=== PATIENT | male | born 1940 | race Caucasian/White ===

== ENCOUNTER 2019-10-11 16:43 | Inpatient (IN) | payer MEDICARE, OTHER ==
[~2019-10-11] VITALS: Ht 172.7 cm; Wt 105.9 kg
[2019-10-11 17:18] LABS: BASOPHILS % (AUTO) 0.4 % (0.0-5.0); EOSINOPHILS % (AUTO) 2.9 % (0.0-8.0); HEMATOCRIT 33.3 % (42-54); LYMPHOCYTES % (AUTO) 12.9 % (21.0-51.0); MEAN CORPUSCULAR HEMOGLOBIN 29.2 pg (27.0-33.0); MEAN CORPUSCULAR HGB CONC 31.8 g/dL (32.0-36.0); MEAN CORPUSCULAR VOLUME 91.7 fL (79-99); MONOCYTES % (AUTO) 7.4 % (3.0-13.0); PLATELET COUNT (AUTO) 151 K/uL (130-400); RED BLOOD CELL COUNT(AUTO) 3.63 MIL/uL (4.50-6.20); RED CELL DISTRIBUTION WIDTH 14.4 % (11.0-15.5); WHITE BLOOD COUNT (AUTO) 8.4 K/uL (4.8-10.8)
[2019-10-11 17:28] LABS: INR 1.17 (0.85-1.15); PARTIAL THROMBOPLASTIN TIME 28.9 SEC (26.3-35.5); PROTHROMBIN TIME 12.2 SEC (9.6-11.6)
[2019-10-11 17:32] LABS: ALBUMIN 3.1 g/dL (3.5-5.0); BILIRUBIN,TOTAL 0.7 mg/dL (0.2-1.0); CREATININE 1.1 mg/dL (0.5-1.5); POTASSIUM 4.1 mmol/L (3.5-5.1); TOTAL PROTEIN, SERUM 6.7 g/dL (6.0-8.3)
[2019-10-11 17:52] LABS: APPEARANCE,URINE Clear (CLEAR); BILIRUBIN,URINE Negative (NEGATIVE); COLOR,URINE Yellow (YELLOW); GLUCOSE, URINE (UA) Negative (NEGATIVE); KETONES,URINE Negative (NEGATIVE); LEUKOCYTE ESTERASE ,URINE Negative (NEGATIVE); NITRATE,URINE Negative (NEGATIVE); OCCULT BLOOD,URINE Negative (NEGATIVE); PROTEIN,URINE Negative (NEGATIVE); UROBILINOGEN,URINE 0.2 mg/dL (0.2-1.0)
[2019-10-11] MEDS ORDERED: DILTIAZEM HCL 5 MG/ML 10 ML VIAL IV ONE (18:31)
[2019-10-11 18:32] LABS: B-TYPE NATRIURETIC PEPTIDE 222 pg/mL (0-100)
[2019-10-11] MEDS ORDERED: DILTIAZEM HCL 125 MG/25 ML VIAL IV ONE (18:32)
[2019-10-11] MEDS ORDERED: SODIUM CHLORIDE 0.9% 100 ML IV ONE (18:32)
[2019-10-11] MEDS ORDERED: SODIUM CHLORIDE 0.9% 500ML 500 ML IV ONE (18:56)
[2019-10-11] MEDS ORDERED: ACETAMINOPHEN 325 MG TAB PO PRN ×2 (20:30)
[2019-10-11] MEDS ORDERED: MORPHINE SULFATE 2 MG/ML 1ML SYG IV PRN (20:30)
[2019-10-11] MEDS ORDERED: LACTULOSE 20 GM/30 ML UDCUP PO PRN (20:30)
[2019-10-11] MEDS ORDERED: DILTIAZEM HCL 125 MG/25 ML 125 MG in SODIUM CHLORIDE 0.9% 100 ML IV PRN (20:30)
[2019-10-11] MEDS ORDERED: GUAIFENESIN-DM 200/20 MG 10 ML PO PRN (20:30)
[2019-10-11] MEDS ORDERED: ONDANSETRON HCL 4 MG/2 ML VIAL IV PRN (20:30)
[2019-10-11] MEDS ORDERED: SODIUM CHLORIDE 0.9% 1000ML 1,000 ML IV SCH (20:30)
[2019-10-11] MEDS ORDERED: BENZOCAINE/MENTH/CETYLPYRD CL 1 EACH LOZENGE MM PRN (20:30)
[2019-10-11] MEDS ORDERED: NITROGLYCERIN 0.4 MG SL TAB SL PRN (20:30)
[2019-10-11] MEDS ORDERED: DILTIAZEM HCL 5 MG/ML 5 ML VIAL IVP PRN (20:30)
[2019-10-11] MEDS ORDERED: POTASSIUM CHLORIDE 20MEQ/100ML 100 ML IV PRN (20:45)
[2019-10-11] MEDS ORDERED: GLUCAGON 1MG KIT 1 MG ML IM PRN (20:45)
[2019-10-11] MEDS ORDERED: LIDOCAINE HCL-MPF 1% 2ML VIAL IV PRN (20:45)
[2019-10-11] MEDS ORDERED: MAGNESIUM 2GM PREMIX 50ML 50 ML IV PRN (20:45)
[2019-10-11] MEDS ORDERED: DEXTROSE 50%-WATER 50 ML DISP.SYRIN IV PRN (20:45)
[2019-10-11] MEDS: FAMOTIDINE/PF 20 MG/2 ML VIAL IV SCH (22:57)
[2019-10-11] MEDS: HEPARIN SODIUM 5000UNIT/ML 1ML VIAL SQ SCH (23:04)
[2019-10-11] MEDS: IPRATROPIUM/ALBUTEROL SULFATE 3 ML SOLUTION IH PRN (23:43)
[2019-10-12] VITALS (7 sets, daily range): BP systolic 107–149; BP diastolic 50–78
[2019-10-12] MEDS ORDERED: INSU100V12 SQ (03:37)
[2019-10-12] MEDS ORDERED: CETI10CA5 PO (03:37)
[2019-10-12] MEDS ORDERED: HYDR-4377 PO (03:37)
[2019-10-12] MEDS ORDERED: ALPR0.5T8 PO (03:37)
[2019-10-12] MEDS ORDERED: FLUTIC IH (03:37)
[2019-10-12] MEDS ORDERED: ZOLP5TAB8 PO (03:37)
[2019-10-12] MEDS ORDERED: CELE200C PO (03:37)
[2019-10-12] MEDS ORDERED: ALBU90AE2 IH (03:37)
[2019-10-12] MEDS ORDERED: VALS320T2 PO (03:37)
[2019-10-12] MEDS ORDERED: LOSA1TAB54 PO (03:37)
[2019-10-12] MEDS ORDERED: TAMS-1 PO (03:37)
[2019-10-12] MEDS ORDERED: ROSU20TA23 PO (03:37)
[2019-10-12] MEDS ORDERED: GLYB5TAB8 PO (03:37)
[2019-10-12] MEDS ORDERED: OMEP10SU2 PO (03:37)
[2019-10-12] MEDS ORDERED: MONT10TA26 PO (03:37)
[2019-10-12] MEDS ORDERED: BENZ-51 PO (03:37)
[2019-10-12] MEDS ORDERED: DULARA IH (03:37)
[2019-10-12 05:43] LABS: BASOPHILS % (AUTO) 0.3 % (0.0-5.0); EOSINOPHILS % (AUTO) 2.9 % (0.0-8.0); HEMATOCRIT 33.3 % (42-54); LYMPHOCYTES % (AUTO) 13.9 % (21.0-51.0); MEAN CORPUSCULAR HEMOGLOBIN 28.8 pg (27.0-33.0); MEAN CORPUSCULAR HGB CONC 31.2 g/dL (32.0-36.0); MEAN CORPUSCULAR VOLUME 92.2 fL (79-99); MONOCYTES % (AUTO) 7.7 % (3.0-13.0); NEUTROPHILS % (AUTO) 74.7 % (40.0-77.0); PLATELET COUNT (AUTO) 175 K/uL (130-400); RED BLOOD CELL COUNT(AUTO) 3.61 MIL/uL (4.50-6.20); RED CELL DISTRIBUTION WIDTH 14.7 % (11.0-15.5); WHITE BLOOD COUNT (AUTO) 8.8 K/uL (4.8-10.8)
[2019-10-12 05:48] LABS: HEMOGLOBIN A1C 8.1 % (4.0-6.0)
[2019-10-12 06:04] LABS: ALBUMIN 3.1 g/dL (3.5-5.0); BILIRUBIN,TOTAL 0.6 mg/dL (0.2-1.0); CREATININE 1.4 mg/dL (0.5-1.5); MAGNESIUM 1.9 mg/dL (1.80-2.40); POTASSIUM 4.3 mmol/L (3.5-5.1); TOTAL PROTEIN, SERUM 6.6 g/dL (6.0-8.3)
[2019-10-12] MEDS: IPRATROPIUM/ALBUTEROL SULFATE 3 ML SOLUTION IH PRN ×4 (06:56→21:34)
[2019-10-12] MEDS: ASPIRIN 81MG TAB.CHEW PO SCH (08:07)
--- NOTE | 2019-10-12 09:30 | NUR ---
DYSPHAGIA EVAL COMPLETED. +S/S OF ASPIRATION WITH THIN LIQUIDS VIA SUP SIP AND STRAW SIP. RECOMMEND REGULAR TEXTURE, THIN LIQUIDS; PILLS WHOLE WITH LIQUIDS. NGHIA CASTREJONCK, SMALL BITES AND SIPS. Addendum: 10/12/19 at 1252 by KAITLYNN WEISS, [facility] Amended: Links added.
[2019-10-12] MEDS: FAMOTIDINE/PF 20 MG/2 ML VIAL IV SCH ×2 (09:47→23:00)
[2019-10-12] MEDS: HEPARIN SODIUM 5000UNIT/ML 1ML VIAL SQ SCH ×2 (09:51→23:00)
[2019-10-12] MEDS ORDERED: FUROSEMIDE 10 MG/ML 2ML VIAL IV SCH (10:45)
--- NOTE | 2019-10-12 11:59 | NUR ---
DR. OLIVER IN ROOM WITH PT. FOR CONSULT.
--- NOTE | 2019-10-12 13:03 | NUR ---
Toan SHARIF PA-C, IN ROOM WITH PT. FOR CONSULT.
--- NOTE | 2019-10-12 13:47 | NUR ---
INITIAL Patient lives with spouse, Katerina Hanley, . No home services. DME: BPM, CPAP, cane, walker with seat. Patient needs help with ADL's independenly but does not drive. PCP is Dr. Kem Washburn. Pharmacy is [facility] located on [address] [place] [address]. DCP is home. Addendum: 10/12/19 at 1349 by ARYAN GARCÍA SS Amended: Links added.
[2019-10-12 14:02] LABS: ABG BASE EXCESS 2.2 mmol/L (-2.0-3.0); ABG HCO3 26.7 mmol/L (21.0-28.0); ABG PCO2 41 mmHg (35-48)
--- NOTE | 2019-10-12 17:51 | NUR ---
TO VQ SCAN VIA W/C ACCOMPANIED BY GREETING CARD WRITER. O2 AT 3L/NC IN PLACE. PLEASANT, TALKATIVE; DENIES ANY C/O SOB.
[2019-10-12] MEDS ORDERED: ZOLPIDEM TARTRATE 5 MG TAB ONE (22:56)
[2019-10-12] MEDS: METOPROLOL TARTRATE 25 MG TAB PO SCH (23:00)
[2019-10-12] MEDS ORDERED: ZOLPIDEM TARTRATE 5 MG TAB PO ONE (23:15)
[2019-10-13 00:07] VITALS: BP 133/69
[2019-10-13 04:09] VITALS: BP 122/83
--- NOTE | 2019-10-13 05:01 | NUR ---
PT HAS HAD EPISODES OF MINIMAL CONFUSION. EASILY REORIENTED. HAVING SOB. AFIB 120-AND DOWN TO 80S. ON CARDIZEM DRIP. 5MG/HR.
[2019-10-13 05:39] LABS: BASOPHILS % (AUTO) 0.2 % (0.0-5.0); EOSINOPHILS % (AUTO) 1.2 % (0.0-8.0); HEMATOCRIT 33.9 % (42-54); LYMPHOCYTES % (AUTO) 8.6 % (21.0-51.0); MEAN CORPUSCULAR HEMOGLOBIN 28.8 pg (27.0-33.0); MEAN CORPUSCULAR HGB CONC 31.3 g/dL (32.0-36.0); MEAN CORPUSCULAR VOLUME 92.1 fL (79-99); MONOCYTES % (AUTO) 7.2 % (3.0-13.0); NEUTROPHILS % (AUTO) 82.4 % (40.0-77.0); PLATELET COUNT (AUTO) 181 K/uL (130-400); RED BLOOD CELL COUNT(AUTO) 3.68 MIL/uL (4.50-6.20); RED CELL DISTRIBUTION WIDTH 14.7 % (11.0-15.5); WHITE BLOOD COUNT (AUTO) 12.2 K/uL (4.8-10.8)
[2019-10-13 05:53] LABS: B-TYPE NATRIURETIC PEPTIDE 241 pg/mL (0-100)
[2019-10-13 06:04] LABS: ALBUMIN 3.4 g/dL (3.5-5.0); CREATININE 1.4 mg/dL (0.5-1.5); MAGNESIUM 2.3 mg/dL (1.80-2.40); PHOSPHORUS 3.7 mg/dL (2.5-4.9); POTASSIUM 4.4 mmol/L (3.5-5.1); TROPONIN I 0.15 ng/mL (0.00-0.06)
[2019-10-13] MEDS: IPRATROPIUM/ALBUTEROL SULFATE 3 ML SOLUTION IH PRN (06:58)
[2019-10-13] MEDS: METOPROLOL TARTRATE 25 MG TAB PO SCH ×3 (07:35→21:00)
[2019-10-13] MEDS: ASPIRIN 81MG TAB.CHEW PO SCH (07:35)
[2019-10-13] MEDS: HEPARIN SODIUM 5000UNIT/ML 1ML VIAL SQ SCH (07:35)
[2019-10-13] MEDS: FAMOTIDINE/PF 20 MG/2 ML VIAL IV SCH ×2 (07:35→20:37)
[2019-10-13 07:53] VITALS: BP 118/71
--- NOTE | 2019-10-13 08:00 | NUR ---
ASSESSMENT PT IS AAOX3 RESTING IN BED, DENIES CP DENIES SOB AT THIS TIME WHILE AT REST. RESTING IN BED, CALL LIGHT WITHIN REACH.
--- NOTE | 2019-10-13 08:00 | NUR ---
MEDICATION ADMINISTRATION / NO SCANNER VERIFIED PATIENTS FULL NAME, , ROOM NUMBER, ALLERGIES, AND ALL MEDS ADMINISTERED WITH PATIENT AND [employer] Games[employer]CH EMAR, ADMINISTER BUTTON USED TO CHART MEDS. NO SCANNER IS AVAILABLE ON MY COMPUTER AND NO OTHER COMPUTER WITH SCANNER IS AVAILABLE FOR ME TO USE, SEARCED ALL FLOORS. IT STAFF OMAYRA CALLED AT 8 AM TO REPORT THIS. OMAYRA STATES THEY WILL WORK ON FINDING ME A VIABLE SCANNER/COMPUTER "SOON".
--- NOTE | 2019-10-13 08:00 | NUR ---
MEDICATION ADMINISTRATION / NO SCANNER VERIFIED PATIENTS FULL NAME, , ROOM NUMBER, ALLERGIES, AND ALL MEDS ADMINISTERED WITH PATIENT AND [employer] HealthCare[employer]CH EMAR, ADMINISTER BUTTON USED TO CHART MEDS. NO SCANNER IS AVAILABLE ON MY COMPUTER AND NO OTHER COMPUTER WITH SCANNER IS AVAILABLE FOR ME TO USE, SEARCED ALL FLOORS. IT STAFF OMAYRA CALLED AT 8 AM TO REPORT THIS. OMAYRA STATES THEY WILL WORK ON FINDING ME A VIABLE SCANNER/COMPUTER "SOON".
--- NOTE | 2019-10-13 08:43 | NUR ---
HOLD Pt CURRENTLY NPO PENDING PROCEDURE. PRESSURE SUPERVISOR WILL CONTINUE TO FOLLOW Pt AT THIS TIME. Addendum: 10/13/19 at 0845 by KAITLYNN WEISS [facility] Amended: Links added.
[2019-10-13 11:48] VITALS: BP 117/62
--- NOTE | 2019-10-13 12:11 | NUR ---
SWALLOW TREATMENT COMPLETED. S: Pt SEATED AT 90 DEGREES IN CHAIR. Pt COOPERATIVE DURING THE SESSION. O: Pt CURRENTLY TARGETING SWALLOWING GOALS: 1. Pt WILL COMPLETE CHIN TUCK FOR ALL MEALS AND SNACKS: 100% ACCURACY. 2. Pt WILL TOLERATE REGULAR, THIN LIQUID DIET WITH NO S/S OF ASPIRATION USING COMPENSATORY STRATEGIES: NO S/S OF ASPIRATION PRESENT WITH PUREED, PUDDING, MIXED AND THIN LIQUID TRIALS X7 EACH. A: Pt VERBALIZED UNDERSTANDING AND KNOWLEDGE ON USE OF CHIN TUCK. Pt STATES THAT HE USES THE CHIN TUCK MANEUVER FOR ALL MEALS AND SNACKS. NO OVERT S/S OF ASPIRATION PRESENT AT THE TIME OF THE SESSION. P: RECOMMEND CONTINUED DIET WITH SAFE SWALLOW PRECAUTIONS. ANIMAL KEEPER HEAD WILL CONTINUE TO FOLLOW Pt. ALL QUESTIONS ANSWERED AT THIS TIME. Addendum: 10/13/19 at 1223 by KAITLYNN WEISS, [facility] Amended: Links added.
[2019-10-13 15:25] VITALS: BP 149/81
[2019-10-13] MEDS: GLYBURIDE 5 MG TABLET PO SCH (17:00)
[2019-10-13] MEDS: INSULIN LISPRO 100 UNIT/ML 3ML SQ SCH (17:00)
[2019-10-13 20:19] VITALS: BP 153/79
[2019-10-13] MEDS: ALPRAZOLAM 0.5 MG TABLET PO SCH (20:37)
[2019-10-13] MEDS: TAMSULOSIN HCL 0.4 MG CAP.ER.24H PO SCH (20:37)
[2019-10-13] MEDS: ATORVASTATIN CALCIUM 40 MG TABLET PO SCH (20:37)
[2019-10-13] MEDS: ZOLPIDEM TARTRATE 5 MG TAB PO SCH (20:38)
[2019-10-13] MEDS ORDERED: FUROSEMIDE 10 MG/ML 2ML VIAL IV SCH (21:00)
[2019-10-13] MEDS ORDERED: METOPROLOL TARTRATE 25 MG TAB PO SCH (21:00)
[2019-10-13] MEDS: ENOXAPARIN SODIUM 120 MG/0.8ML SQ SCH (22:24)
[2019-10-13] MEDS: INSULIN GLARGINE 100 UNITS/ML 10 ML VIAL SQ SCH (22:41)
--- NOTE | 2019-10-14 | NUR ---
PT, AGAIN WAS CONFUSED AT THIS TIME. GOT OUT OF BED AND PULLED OFF HIS IV, HIS GOWN, AND URINATED ON THE FLOOR. HE STATED HE WAS SO SLEEPY HE DID NOT THINK ABOUT CALLING FOR HELP, AND UNTIL I CAME IN TO CHECK ON HIM HE REALIZED WHAT HE HAD DONE. CALLED HIS , AND REQUESTED THAT SHE COME IN PER PT REQUEST. NEW IV STARTED, PT CLEANED UP, AND CONTINUES ON CARDIZEM DRIP. HR DID INCREASE TO 120'S AT THIS TIME. PLACED BACK ON NASAL CANNULA.
[2019-10-14 00:46] VITALS: BP 146/76
[2019-10-14 04:03] VITALS: BP 97/50
[2019-10-14 05:08] LABS: BASOPHILS % (AUTO) 0.3 % (0.0-5.0); EOSINOPHILS % (AUTO) 2.2 % (0.0-8.0); HEMATOCRIT 32.5 % (42-54); LYMPHOCYTES % (AUTO) 11.8 % (21.0-51.0); MEAN CORPUSCULAR HGB CONC 31.7 g/dL (32.0-36.0); MEAN CORPUSCULAR VOLUME 91.5 fL (79-99); MONOCYTES % (AUTO) 8.9 % (3.0-13.0); NEUTROPHILS % (AUTO) 76.5 % (40.0-77.0); PLATELET COUNT (AUTO) 170 K/uL (130-400); RED BLOOD CELL COUNT(AUTO) 3.55 MIL/uL (4.50-6.20); RED CELL DISTRIBUTION WIDTH 14.7 % (11.0-15.5); WHITE BLOOD COUNT (AUTO) 9.8 K/uL (4.8-10.8)
[2019-10-14 05:21] LABS: CREATININE 1.4 mg/dL (0.5-1.5); MAGNESIUM 1.8 mg/dL (1.80-2.40); PHOSPHORUS 3.1 mg/dL (2.5-4.9)
[2019-10-14 05:53] LABS: B-TYPE NATRIURETIC PEPTIDE 315 pg/mL (0-100)
[2019-10-14] MEDS: IPRATROPIUM/ALBUTEROL SULFATE 3 ML SOLUTION IH PRN ×2 (06:43→17:11)
[2019-10-14] MEDS: INSULIN LISPRO 100 UNIT/ML 3ML SQ SCH ×3 (07:04→16:34)
[2019-10-14 08:16] VITALS: BP 105/59
[2019-10-14] MEDS ORDERED: FUROSEMIDE 10 MG/ML 4ML VIAL IV SCH ×2 (09:00→14:00)
[2019-10-14] MEDS: CETIRIZINE HCL 5 MG TABLET PO SCH (10:59)
[2019-10-14] MEDS: ALPRAZOLAM 0.5 MG TABLET PO SCH ×3 (10:59→21:48)
[2019-10-14] MEDS: GLYBURIDE 5 MG TABLET PO SCH ×2 (10:59→16:34)
[2019-10-14] MEDS: METOPROLOL TARTRATE 25 MG TAB PO SCH ×3 (11:00→21:48)
[2019-10-14] MEDS: MONTELUKAST SODIUM 10 MG TAB PO SCH (11:00)
[2019-10-14] MEDS: FAMOTIDINE/PF 20 MG/2 ML VIAL IV SCH ×2 (11:00→21:48)
[2019-10-14] MEDS: ASPIRIN 81MG TAB.CHEW PO SCH (11:00)
[2019-10-14] MEDS: ENOXAPARIN SODIUM 120 MG/0.8ML SQ SCH ×2 (11:01→21:49)
[2019-10-14 12:10] VITALS: BP 105/52
--- NOTE | 2019-10-14 13:10 | NUR ---
PATIENT TAKEN OFF CARDIZEM DRIP.
--- NOTE | 2019-10-14 14:22 | NUR ---
TELE UPDATE: 80
[2019-10-14 16:33] VITALS: BP 132/66
[2019-10-14] MEDS: BUDESONIDE 0.5 MG/2 ML INH IH SCH (17:11)
--- NOTE | 2019-10-14 19:00 | NUR ---
PATIENT COMPLETED 1ST PART OF HERBERT SCAN HE WILL HAVE TO BE NPO AFTER MIDNIGHT. ENDORSED THIS TO PM NURSE. PATIENT IS ALSO PENDING TO BRING HIS OWN CPAP. IN THE MEAN TIME, MAY USE HOSPITAL'S EQUIPMENT.
[2019-10-14 20:17] VITALS: BP 124/60
[2019-10-14] MEDS: INSULIN GLARGINE 100 UNITS/ML 10 ML VIAL SQ SCH (21:00)
[2019-10-14] MEDS: ZOLPIDEM TARTRATE 5 MG TAB PO SCH (21:48)
[2019-10-14] MEDS: ATORVASTATIN CALCIUM 40 MG TABLET PO SCH (21:48)
[2019-10-14] MEDS: TAMSULOSIN HCL 0.4 MG CAP.ER.24H PO SCH (21:48)
[2019-10-15 00:01] VITALS: BP 111/55
--- NOTE | 2019-10-15 03:00 | NUR ---
PT PULLED IV OUT, NEW IV INSERTED.
[2019-10-15 04:18] VITALS: BP 128/73
--- NOTE | 2019-10-15 06:20 | NUR ---
REFUSING DAILY WEIGHT ON PT. STATING SHE WANTS HIM TO SLEEP.
[2019-10-15] MEDS: INSULIN LISPRO 100 UNIT/ML 3ML SQ SCH ×3 (06:23→18:00)
[2019-10-15] MEDS: IPRATROPIUM/ALBUTEROL SULFATE 3 ML SOLUTION IH PRN ×2 (07:18→19:10)
[2019-10-15] MEDS: BUDESONIDE 0.5 MG/2 ML INH IH SCH ×2 (07:18→19:25)
[2019-10-15 07:27] LABS: HEMATOCRIT 30.7 % (42-54); MEAN CORPUSCULAR HEMOGLOBIN 29.3 pg (27.0-33.0); MEAN CORPUSCULAR HGB CONC 31.9 g/dL (32.0-36.0); MEAN CORPUSCULAR VOLUME 91.6 fL (79-99); PLATELET COUNT (AUTO) 162 K/uL (130-400); RED BLOOD CELL COUNT(AUTO) 3.35 MIL/uL (4.50-6.20); RED CELL DISTRIBUTION WIDTH 14.2 % (11.0-15.5); WHITE BLOOD COUNT (AUTO) 7.7 K/uL (4.8-10.8)
[2019-10-15 07:36] LABS: CREATININE 1.4 mg/dL (0.5-1.5); POTASSIUM 3.5 mmol/L (3.5-5.1)
[2019-10-15 07:40] LABS: INR 1.22 (0.85-1.15); PROTHROMBIN TIME 12.7 SEC (9.6-11.6)
--- NOTE | 2019-10-15 07:40 | NUR ---
ASSESSMENT ENCOUNTERED PT A&OX3, CALM COOPERATIVE AND DOES NOT APPEAR TO BE IN ANY DISTRESS NOR ANY NEURO DEFICITS PRESENT. PT DENIES PAIN, SOB, NAUSEA BUT DOES C/O INTERMITTENT COUGH, DYSPNEA ON EXERTION AND GENERAL BODY WEAKNESS. PT IS NPO PENDING LEXISCAN. CALL LIGHT WITHIN REACH, FAMILY AT BEDSIDE.
[2019-10-15 07:49] VITALS: BP 111/46
[2019-10-15] MEDS: FAMOTIDINE/PF 20 MG/2 ML VIAL IV SCH ×2 (07:50→20:42)
[2019-10-15] MEDS: ENOXAPARIN SODIUM 120 MG/0.8ML SQ SCH ×2 (07:50→20:42)
[2019-10-15] MEDS: METOPROLOL TARTRATE 25 MG TAB PO SCH ×3 (07:50→20:42)
[2019-10-15 08:03] LABS: EOSINOPHILS % (MANUAL) 5 % (1-6); LYMPHOCYTES % (MANUAL) 20 % (22-44); MAN.DIFF COMMENT-IMPRESSION MANUAL DIFFERENTIAL; MONOCYTES % (MANUAL) 5 % (2-9); SEGMENTED NEUTROPHILS % 70 % (40-70)
[2019-10-15 08:04] LABS: PLATELET MORPHOLOGY COMMENT ADEQUATE
[2019-10-15] MEDS: ALPRAZOLAM 0.5 MG TABLET PO SCH ×3 (09:00→21:00)
[2019-10-15] MEDS ORDERED: REGADENOSON 0.4 MG/5 ML PF SYG IVP SCH (10:45)
--- NOTE | 2019-10-15 13:31 | NUR ---
FOLLOW UP Pt COMPLETING SAFE SWALLOW PRECAUTIONS OF NGHIA PAEZ, NO STRAW, SMALL BITES AND SIPS INDEPENDENTLY FOR ALL MEALS AND SNACKS. DISCHARGE FROM SKILLED SPEECH THERAPY IS RECOMMENDED AT THIS TIME. Addendum: 10/15/19 at 1332 by KAITLYNN WEISS, [facility] Amended: Links added.
[2019-10-15] MEDS ORDERED: AZITHROMYCIN 500MG+NS 250ML 250 ML IV SCH (14:45)
[2019-10-15 15:40] VITALS: BP 142/57
[2019-10-15] MEDS: GLYBURIDE 5 MG TABLET PO SCH ×2 (15:58→17:58)
[2019-10-15] MEDS: AZITHROMYCIN 250 MG TABLET PO SCH (15:58)
[2019-10-15] MEDS: CETIRIZINE HCL 5 MG TABLET PO SCH (15:59)
[2019-10-15] MEDS: MONTELUKAST SODIUM 10 MG TAB PO SCH (15:59)
[2019-10-15] MEDS: FUROSEMIDE 40 MG TABLET PO SCH (15:59)
[2019-10-15] MEDS: ASPIRIN 81MG TAB.CHEW PO SCH (15:59)
[2019-10-15] MEDS: CEFTRIAXONE SODIUM 1 GM IVP SCH (16:02)
[2019-10-15 19:12] VITALS: BP 131/63
[2019-10-15] MEDS: TAMSULOSIN HCL 0.4 MG CAP.ER.24H PO SCH (20:42)
[2019-10-15] MEDS: ATORVASTATIN CALCIUM 40 MG TABLET PO SCH (20:42)
[2019-10-15] MEDS: ZOLPIDEM TARTRATE 5 MG TAB PO SCH (21:00)
[2019-10-15] MEDS: INSULIN GLARGINE 100 UNITS/ML 10 ML VIAL SQ SCH (21:00)
[2019-10-15 23:45] VITALS: BP 140/72
[2019-10-16 03:19] VITALS: BP 117/49
[2019-10-16 04:19] LABS: BASOPHILS % (AUTO) 0.3 % (0.0-5.0); EOSINOPHILS % (AUTO) 4.1 % (0.0-8.0); HEMATOCRIT 31.3 % (42-54); LYMPHOCYTES % (AUTO) 17.8 % (21.0-51.0); MEAN CORPUSCULAR HEMOGLOBIN 28.8 pg (27.0-33.0); MEAN CORPUSCULAR HGB CONC 31.3 g/dL (32.0-36.0); MEAN CORPUSCULAR VOLUME 92.1 fL (79-99); MONOCYTES % (AUTO) 10.4 % (3.0-13.0); NEUTROPHILS % (AUTO) 67.1 % (40.0-77.0); PLATELET COUNT (AUTO) 167 K/uL (130-400)
[2019-10-16 04:35] LABS: ALBUMIN 2.9 g/dL (3.5-5.0); BILIRUBIN,TOTAL 0.7 mg/dL (0.2-1.0); CREATININE 1.4 mg/dL (0.5-1.5); POTASSIUM 3.7 mmol/L (3.5-5.1); TOTAL PROTEIN, SERUM 6.5 g/dL (6.0-8.3)
[2019-10-16] MEDS: INSULIN LISPRO 100 UNIT/ML 3ML SQ SCH ×3 (06:29→17:00)
[2019-10-16] MEDS: BUDESONIDE 0.5 MG/2 ML INH IH SCH ×2 (06:49→18:28)
[2019-10-16] MEDS: IPRATROPIUM/ALBUTEROL SULFATE 3 ML SOLUTION IH PRN ×2 (06:49→18:28)
[2019-10-16 07:44] VITALS: BP 119/62
--- NOTE | 2019-10-16 07:50 | NUR ---
ASSESSMENT ENCOUNTERED PT ASLEEP BUT AROUSEABLE, A&OX3, CALM COOPERATIVE AND DOES NOT APPEAR TO BE IN ANY DISTRESS NOR ANY NEURO DEFICITS PRESENT. PT DENIES PAIN, SOB, BUT DOES C/O NAUSEA, INTERMITTENT COUGH, DYSPNEA ON EXERTION AND GENERAL BODY WEAKNESS. PT IS AMBULATORY WITH 1-2 PERSON ASSIST, CALL LIGHT WITHIN REACH, FAMILY AT BEDSIDE.
[2019-10-16] MEDS: METOPROLOL TARTRATE 25 MG TAB PO SCH (08:33)
[2019-10-16] MEDS: CETIRIZINE HCL 5 MG TABLET PO SCH (08:33)
[2019-10-16] MEDS: MONTELUKAST SODIUM 10 MG TAB PO SCH (08:33)
[2019-10-16] MEDS: ASPIRIN 81MG TAB.CHEW PO SCH (08:33)
[2019-10-16] MEDS: FAMOTIDINE/PF 20 MG/2 ML VIAL IV SCH ×2 (08:34→20:54)
[2019-10-16] MEDS: GLYBURIDE 5 MG TABLET PO SCH ×2 (08:34→17:07)
[2019-10-16] MEDS: FUROSEMIDE 40 MG TABLET PO SCH (08:34)
[2019-10-16] MEDS: AZITHROMYCIN 250 MG TABLET PO SCH (08:34)
[2019-10-16] MEDS: ALPRAZOLAM 0.5 MG TABLET PO SCH ×3 (08:42→20:54)
[2019-10-16] MEDS: ENOXAPARIN SODIUM 120 MG/0.8ML SQ SCH ×2 (08:42→20:54)
[2019-10-16] MEDS ORDERED: CEFTRIAXONE SODIUM 500 MG VIAL IV SCH ×2 (09:00)
[2019-10-16 10:30] VITALS: BP 103/57
[2019-10-16] MEDS: CEFTRIAXONE SODIUM 1 GM IVP SCH (15:15)
[2019-10-16 15:29] VITALS: BP 116/54
[2019-10-16 19:09] VITALS: BP 135/87
[2019-10-16] MEDS: ATORVASTATIN CALCIUM 40 MG TABLET PO SCH (20:53)
[2019-10-16] MEDS: TAMSULOSIN HCL 0.4 MG CAP.ER.24H PO SCH (20:53)
[2019-10-16] MEDS: ZOLPIDEM TARTRATE 5 MG TAB PO SCH (20:53)
[2019-10-16] MEDS: METOPROLOL TARTRATE 50 MG TAB PO SCH (20:53)
[2019-10-16] MEDS: APIXABAN 5 MG TABLET PO SCH (20:53)
[2019-10-16] MEDS: INSULIN GLARGINE 100 UNITS/ML 10 ML VIAL SQ SCH (21:00)
[2019-10-16 23:16] VITALS: BP 119/52
[2019-10-17 02:44] VITALS: BP 130/72
[2019-10-17 03:39] LABS: CREATININE 1.2 mg/dL (0.5-1.5); POTASSIUM 3.4 mmol/L (3.5-5.1)
[2019-10-17] MEDS: INSULIN LISPRO 100 UNIT/ML 3ML SQ SCH ×3 (05:58→16:45)
[2019-10-17] MEDS ORDERED: POTASSIUM CHLORIDE 20 MEQ ERTAB PO PRN (06:00)
[2019-10-17] MEDS ORDERED: LIDOCAINE HCL-MPF 1% 2ML VIAL IV PRN (06:00)
[2019-10-17] MEDS ORDERED: POTASSIUM CHLORIDE 10% ELIXIR 20 MEQ/15 ML UDCUP PO PRN (06:00)
[2019-10-17] MEDS: IPRATROPIUM/ALBUTEROL SULFATE 3 ML SOLUTION IH PRN ×2 (06:40→18:22)
[2019-10-17] MEDS: BUDESONIDE 0.5 MG/2 ML INH IH SCH ×2 (06:40→18:22)
[2019-10-17 07:40] VITALS: BP 137/62
--- NOTE | 2019-10-17 07:45 | NUR ---
ASSESSMENT ENCOUNTERED PT ASLEEP BUT AROUSEABLE, A&OX3, CALM COOPERATIVE AND DOES NOT APPEAR TO BE IN ANY DISTRESS NOR ANY NEURO DEFICITS PRESENT. PT DENIES PAIN, SOB, BUT DOES CONTINUE TO C/O NAUSEA, INTERMITTENT COUGH, GERD, DYSPNEA ON EXERTION AND GENERAL BODY WEAKNESS. PT STATES HE NORMALLY TAKES OMEPRAZOLE AT HOME FOR RELIEF BUT HAS NOT RESUMED INPATIENT, INFORMED PT THAT DR RANDOLPH WILL BED NOTIFIED FOR POSSIBLE CONTINUATION INPATIENT, PT IS AMBULATORY WITH 1-2 PERSON ASSIST, CALL LIGHT WITHIN REACH, FAMILY AT BEDSIDE.
[2019-10-17] MEDS: GLYBURIDE 5 MG TABLET PO SCH ×2 (08:00→16:42)
[2019-10-17] MEDS: ENOXAPARIN SODIUM 120 MG/0.8ML SQ SCH (09:00)
[2019-10-17] MEDS: FAMOTIDINE/PF 20 MG/2 ML VIAL IV SCH (09:37)
[2019-10-17] MEDS: APIXABAN 5 MG TABLET PO SCH ×2 (10:14→20:54)
[2019-10-17] MEDS: METOPROLOL TARTRATE 50 MG TAB PO SCH ×2 (10:14→20:53)
[2019-10-17] MEDS: ASPIRIN 81MG TAB.CHEW PO SCH (10:14)
[2019-10-17] MEDS: MONTELUKAST SODIUM 10 MG TAB PO SCH (10:14)
[2019-10-17] MEDS: FUROSEMIDE 40 MG TABLET PO SCH (10:14)
[2019-10-17] MEDS: ALPRAZOLAM 0.5 MG TABLET PO SCH ×3 (10:15→20:55)
[2019-10-17] MEDS: CETIRIZINE HCL 5 MG TABLET PO SCH (10:15)
[2019-10-17 11:08] VITALS: BP 133/77
[2019-10-17 15:53] VITALS: BP 124/72
[2019-10-17] MEDS ORDERED: PANTOPRAZOLE SODIUM 40 MG TABLET.DR ONE (16:37)
[2019-10-17] MEDS: CEFTRIAXONE SODIUM 1 GM IVP SCH (16:42)
[2019-10-17] MEDS: AZITHROMYCIN 250 MG TABLET PO SCH (16:42)
[2019-10-17 19:16] VITALS: BP 111/60
[2019-10-17] MEDS: TAMSULOSIN HCL 0.4 MG CAP.ER.24H PO SCH (20:53)
[2019-10-17] MEDS: ATORVASTATIN CALCIUM 40 MG TABLET PO SCH (20:53)
[2019-10-17] MEDS: ZOLPIDEM TARTRATE 5 MG TAB PO SCH (20:53)
[2019-10-17] MEDS: INSULIN GLARGINE 100 UNITS/ML 10 ML VIAL SQ SCH (21:03)
[2019-10-17 23:01] VITALS: BP 125/58
[2019-10-18 03:22] VITALS: BP 109/53
[2019-10-18] MEDS: INSULIN LISPRO 100 UNIT/ML 3ML SQ SCH ×3 (06:34→17:08)
[2019-10-18] MEDS: IPRATROPIUM/ALBUTEROL SULFATE 3 ML SOLUTION IH PRN (06:41)
[2019-10-18] MEDS: BUDESONIDE 0.5 MG/2 ML INH IH SCH (06:41)
[2019-10-18 08:03] VITALS: BP 103/46
[2019-10-18] MEDS: GLYBURIDE 5 MG TABLET PO SCH ×2 (08:07→17:07)
[2019-10-18] MEDS ORDERED: PANTOPRAZOLE SODIUM 40 MG TABLET.DR PO SCH (09:00)
[2019-10-18] MEDS: CETIRIZINE HCL 5 MG TABLET PO SCH (09:54)
[2019-10-18] MEDS: ALPRAZOLAM 0.5 MG TABLET PO SCH ×2 (09:54→14:00)
[2019-10-18] MEDS: METOPROLOL TARTRATE 50 MG TAB PO SCH (09:54)
[2019-10-18] MEDS: MONTELUKAST SODIUM 10 MG TAB PO SCH (09:54)
[2019-10-18] MEDS: APIXABAN 5 MG TABLET PO SCH (09:54)
[2019-10-18] MEDS: ASPIRIN 81MG TAB.CHEW PO SCH (09:55)
[2019-10-18] MEDS: FUROSEMIDE 40 MG TABLET PO SCH (09:55)
[2019-10-18 11:47] VITALS: BP 117/58
--- NOTE | 2019-10-18 15:09 | NUR ---
DC PLAN WEANING OF . SPOKE TO SPEECH SAID THAT THE VITTASTEM STIMULATOR WE DO NOT CARRY IN HOUSE. PATIENT WOULD HAVE TO GO TO THERAPY FOR IT. SAID THAT PATIENT HAS NOT HAD REHAB IN A LONG TIME IS AWARE OF EXCERCISES THAT HE NEEDS TO DO AND KNOWS PROPER WAY OF EATING. HAD OFFERED SNF OR REHAB TO DR. BLUE ON FRIDAY SAID PATIENT DID NOT NEED. Addendum: 10/18/19 at 1512 by KATE FISHER RN CM Amended: Links added.
[2019-10-18 16:00] VITALS: BP 120/75
[2019-10-18] MEDS: AZITHROMYCIN 250 MG TABLET PO SCH (16:16)
[2019-10-18] MEDS ORDERED: METO100T14 PO (16:37)
[2019-10-18] MEDS ORDERED: APIX5TAB PO (16:37)
[2019-10-18] MEDS ORDERED: ASPI-1005 PO (16:37)
[2019-10-18] MEDS ORDERED: FURO40TA7 PO (16:37)
== END 2019-10-18 18:45 | disposition home or self-care (01) | DRG 291 ==
LOC: EDH 16:43 → EDHIP 20:19 → 2DH 21:18
PROVIDERS: ADMIT Internal Medicine; ATTEND Internal Medicine
DX: I11.0 Hypertensive heart disease with heart failure (principal); J96.01 Acute respiratory failure with hypoxia; J18.9 Pneumonia, unspecified organism; I50.31 Acute diastolic (congestive) heart failure; I48.92 Unspecified atrial flutter; J44.0 Chronic obstructive pulmonary disease with (acute) lower respiratory infection; I48.19 Other persistent atrial fibrillation; E66.01 Morbid (severe) obesity due to excess calories; G14 Postpolio syndrome; I25.10 Atherosclerotic heart disease of native coronary artery without angina pectoris; K21.9 Gastro-esophageal reflux disease without esophagitis; E11.9 Type 2 diabetes mellitus without complications; E78.5 Hyperlipidemia, unspecified; G47.33 Obstructive sleep apnea (adult) (pediatric); Z68.35 Body mass index [BMI] 35.0-35.9, adult; I25.2 Old myocardial infarction; Z79.4 Long term (current) use of insulin; Z79.51 Long term (current) use of inhaled steroids; Z98.1 Arthrodesis status; Z85.820 Personal history of malignant melanoma of skin; Z85.21 Personal history of malignant neoplasm of larynx; Z82.49 Family history of ischemic heart disease and other diseases of the circulatory system
CPT/HCPCS: 36415; 36600; 71045; 71046; 71250; 78452; 78580; 80048; 80053; 80061; 81003; 82040; 82550; 82803; 82948; 83036; 83735; 83874; 83880; 84100; 84145; 84443; 84484; 85025; 85610; 85730; 87880; 92526; 92610; 93005; 93017; 93306; 93970; 94640; 94664; 96374; A9500; A9540; G0378; J0696; J1644; J1650; J1940; J2405; J2785; J3490; J7040

== ENCOUNTER → 2019-10-25 | Outpatient (CLI) | payer OTHER ==
[~2019-10-25] MED LIST: ALBU90AE2 IH; ALPR0.5T8 PO; APIX5TAB PO; ASPI-1005 PO; BENZ-51 PO; CETI10CA5 PO; DULARA IH; FLUTIC IH; FURO40TA7 PO; GLYB5TAB8 PO; HYDR-4377 PO; INSU100V12 SQ; LOSA1TAB54 PO; METO100T14 PO; MONT10TA26 PO; OMEP10SU2 PO; ROSU20TA23 PO; TAMS-1 PO; VALS320T2 PO; ZOLP5TAB8 PO
== END | disposition home or self-care (01) ==
LOC: OIH 13:09
PROVIDERS: ATTEND Internal Medicine Cardiovascular Disease
DX: R06.00 Dyspnea, unspecified (principal)
CPT/HCPCS: 71046

== ENCOUNTER 2020-04-27 17:30 | Inpatient (IN) | payer OTHER ==
[~2020-04-27] VITALS: Ht 172.7 cm; Wt 98.9 kg
[2020-04-27 18:05] LABS: BASOPHILS % (AUTO) 0.1 % (0.0-5.0); EOSINOPHILS % (AUTO) 2.1 % (0.0-8.0); HEMATOCRIT 44.2 % (42-54); LYMPHOCYTES % (AUTO) 14.9 % (21.0-51.0); MEAN CORPUSCULAR HEMOGLOBIN 29.6 pg (27.0-33.0); MEAN CORPUSCULAR HGB CONC 33.3 g/dL (32.0-36.0); MEAN CORPUSCULAR VOLUME 88.9 fL (79-99); MONOCYTES % (AUTO) 6.5 % (3.0-13.0); NEUTROPHILS % (AUTO) 75.9 % (40.0-77.0); PLATELET COUNT (AUTO) 213 K/uL (130-400); RED BLOOD CELL COUNT(AUTO) 4.97 MIL/uL (4.50-6.20); RED CELL DISTRIBUTION WIDTH 13.4 % (11.0-15.5); WHITE BLOOD COUNT (AUTO) 15.1 K/uL (4.8-10.8)
[2020-04-27 18:30] LABS: INR 1.02 (0.85-1.15); PARTIAL THROMBOPLASTIN TIME 25.1 SEC (26.3-35.5)
[2020-04-27 18:31] LABS: CREATININE 1.5 mg/dL (0.5-1.5); POTASSIUM 3.8 mmol/L (3.5-5.1)
[2020-04-27 18:36] LABS: ALBUMIN 3.8 g/dL (3.5-5.0); BILIRUBIN,TOTAL 0.5 mg/dL (0.2-1.0); TOTAL PROTEIN, SERUM 7.5 g/dL (6.0-8.3)
[2020-04-27 18:39] LABS: B-TYPE NATRIURETIC PEPTIDE 70 pg/mL (0-100)
[2020-04-27] MEDS ORDERED: IOHEXOL-350 75 ML VIAL IV ONE (18:51)
[2020-04-27 19:57] LABS: ABG BASE EXCESS -1.3 mmol/L (-2.0-3.0); ABG HCO3 23.5 mmol/L (21.0-28.0); ABG OXYGEN SATURATION 93.7 % (95.0-99.0); ABG PCO2 40 mmHg (35-48)
[2020-04-27 22:18] LABS: APPEARANCE,URINE Clear (CLEAR); BILIRUBIN,URINE Negative (NEGATIVE); COLOR,URINE Yellow (YELLOW); GLUCOSE, URINE (UA) TRACE mg/dL (NEGATIVE); KETONES,URINE Negative (NEGATIVE); LEUKOCYTE ESTERASE ,URINE Negative (NEGATIVE); NITRATE,URINE Negative (NEGATIVE); OCCULT BLOOD,URINE Negative (NEGATIVE); PROTEIN,URINE Trace mg/dL (NEGATIVE)
[2020-04-28] MEDS ORDERED: SODIUM CHLORIDE 0.9% 1000ML 1,000 ML IV SCH (00:04)
[2020-04-28] MEDS ORDERED: ACETAMINOPHEN 325 MG TAB PO PRN ×2 (00:15)
[2020-04-28] MEDS ORDERED: MAG HYDROX/AL HYDROX/SIMETH 30 ML, LIDOCAINE HCL 2% VISCOUS 30 ML, DIPHENHYDRAMINE HCL ... PO PRN ×6 (00:15→12:30)
[2020-04-28] MEDS ORDERED: LIDOCAINE HCL 2% VISCOUS 30 ML, MAG HYDROX/AL HYDROX/SIMETH 30 ML, BELLADONNA-PHENOBARB... PO PRN ×3 (00:15)
[2020-04-28] MEDS ORDERED: BENZONATATE 100 MG CAPSULE PO PRN ×2 (00:15→12:15)
[2020-04-28] MEDS: FUROSEMIDE 10 MG/ML 4ML VIAL IVP SCH ×2 (00:15→09:34)
[2020-04-28] MEDS ORDERED: MAG HYDROX/AL HYDROX/SIMETH ES 30 ML SUSP UDCUP PO PRN (00:15)
[2020-04-28] MEDS ORDERED: ONDANSETRON HCL 4 MG/2 ML VIAL IV PRN (00:15)
[2020-04-28] MEDS ORDERED: GUAIFENESIN-DM 200/20 MG 10 ML PO PRN (00:15)
[2020-04-28] MEDS ORDERED: ALBUTEROL SULFATE 0.083% 2.5 MG/3 ML INH IH PRN (00:15)
[2020-04-28] MEDS ORDERED: DIPHENHYDRAMINE HCL 25 MG CAPSULE PO PRN (00:15)
[2020-04-28] MEDS ORDERED: DiphenhydrAMINE HCL 50 MG/ML VIAL IV PRN (00:15)
[2020-04-28] MEDS ORDERED: HYDRALAZINE HCL 20 MG/ML VIAL IV PRN (00:15)
[2020-04-28] MEDS ORDERED: MORPHINE SULFATE 4 MG/1ML SYG IV PRN (00:15)
[2020-04-28] MEDS ORDERED: MORPHINE SULFATE 2 MG/ML 1ML SYG IV PRN (00:15)
[2020-04-28] MEDS ORDERED: LACTULOSE 20 GM/30 ML UDCUP PO PRN (00:15)
[2020-04-28] MEDS ORDERED: ZOLPIDEM TARTRATE 5 MG TAB PO PRN ×2 (00:15→12:15)
[2020-04-28] MEDS ORDERED: NITROGLYCERIN 0.4 MG SL TAB SL PRN (00:15)
[2020-04-28] MEDS ORDERED: METHYLPREDNISOLONE SOD SUCC 40MG/ML 1ML ONE ×2 (01:05→05:42)
[2020-04-28] MEDS ORDERED: FUROSEMIDE 10 MG/ML 4ML VIAL ONE (01:06)
[2020-04-28 01:42] LABS: TROPONIN I 0.09 ng/mL (0.00-0.06)
[2020-04-28 04:18] VITALS: BP 151/74
[2020-04-28] MEDS: METHYLPREDNISOLONE SOD SUCC 125MG/2ML VIAL IV SCH ×2 (06:00→13:27)
[2020-04-28 09:00] VITALS: BP 128/81
[2020-04-28 09:25] LABS: TROPONIN I 0.1 ng/mL (0.00-0.06)
[2020-04-28] MEDS: DOXYCYCLINE HYCLATE 100 MG TABLET PO SCH ×2 (09:30→21:38)
[2020-04-28] MEDS: FAMOTIDINE/PF 20 MG/2 ML VIAL IV SCH ×2 (09:31→21:38)
[2020-04-28] MEDS: HEPARIN SODIUM 5000UNIT/ML 1ML VIAL SQ SCH ×3 (09:34→21:00)
[2020-04-28 11:43] VITALS: BP 149/65
--- NOTE | 2020-04-28 12:17 | NUR ---
HYPERGLYCEMIA AUGUSTINE SERRANO made aware of pt BS 383. Made aware pt currently on Solumedrol. No new orders at this time.
[2020-04-28] MEDS ORDERED: DEXTROSE 50%-WATER 50 ML DISP.SYRIN IV PRN (12:30)
[2020-04-28] MEDS ORDERED: GLUCAGON 1MG KIT 1 MG ML IM PRN (12:30)
[2020-04-28] MEDS ORDERED: INSULIN HUMULIN R 100 UNIT/ML 3ML ONE (13:37)
[2020-04-28] MEDS: INSULIN HUMULIN R 100 UNIT/ML 3ML SQ SCH ×2 (13:42→21:00)
--- NOTE | 2020-04-28 14:00 | NUR ---
Cardiology consult As per pt being seen by Dr Webster outjazz. Dr Johnson made aware. Orders to consult Dr Webster
--- NOTE | 2020-04-28 14:01 | NUR ---
DR MENDEZ CONSULT Made aware. Reports he will see pt tomorrow
--- NOTE | 2020-04-28 14:13 | NUR ---
Cardiology Dr Webster consulted. Pt awaiting to be seen
--- NOTE | 2020-04-28 14:56 | NUR ---
IA AT BEDSIDE WITH PATIENT-- STORY LATER CONTRADICTED BY SPOUSE PATIENT STATES lives w spouse, needs assist adls, has electric scooter, wheelchair van w/chairc, rolling walker o2, neb, cpapt l- Patient lives half the time in [place], has been on oxygen since this spring. Left his oxygen concentrator up there- was using it off and on came down here, is 'sharing with a neighbor'; states wants his own machine; wants a portable that was never prescribed, has the stationary concentrator in his own home. Patient does not know who his o2 supplier is. Asked if spouse will know- patient states 'My knows nothing'. Discussed same with Dr. Deal. Call to spouse to find out Home o2 supplier. Spouse alert and oriented,,,,,asked for name of O2 supplier, she states "oh no, he is hallucinating again" States has not qualified for oxygen, states they came down here to look after a friend's home, and there is a concentrator in that home, and they have been using it this week for patient. States patient talks about thngs that have not happened. Spouse states took him to clinic in [place] and he 'perked right up' after they put oxygen on him. States lips were blue but sats was 97% prior to oxygen. [facility] say 'maybe he needs oxygen even though the sats don't show it' States what he says does not make sense and she is finding his conversation and behavior increasingly confused. Call to MD; Advised MD that patient has no oxygen, and he is not a reliable historian.
[2020-04-28 15:49] VITALS: BP 164/63
[2020-04-28] MEDS ORDERED: INSULIN GLARGINE 100 UNITS/ML 10 ML VIAL SQ ONE (15:59)
--- NOTE | 2020-04-28 16:07 | NUR ---
Pt to CT
[2020-04-28] MEDS ORDERED: INSULIN HUMULIN R 100 UNIT/ML 3ML SQ SCH ×2 (17:00→19:00)
[2020-04-28] MEDS: GLYBURIDE 5 MG TABLET PO SCH (17:19)
[2020-04-28 17:54] LABS: TROPONIN I 0.04 ng/mL (0.00-0.06)
[2020-04-28 20:37] VITALS: BP 155/61
[2020-04-28] MEDS: DULERA IH SCH (21:00)
[2020-04-28] MEDS: INSULIN GLARGINE 100 UNITS/ML 10 ML VIAL SQ SCH (21:00)
[2020-04-28] MEDS ORDERED: INSULIN GLARGINE 100 UNITS/ML 10 ML VIAL SQ SCH (21:00)
[2020-04-28] MEDS: APIXABAN 5 MG TABLET PO SCH (21:38)
[2020-04-28] MEDS: TAMSULOSIN HCL 0.4 MG CAP.ER.24H PO SCH (21:38)
[2020-04-28] MEDS: METOPROLOL TARTRATE 50 MG TAB PO SCH (21:38)
[2020-04-29] VITALS (8 sets, daily range): BP systolic 96–165; BP diastolic 38–79
[2020-04-29] MEDS: IPRATROPIUM/ALBUTEROL SULFATE 3 ML SOLUTION IH SCH ×5 (00:47→23:27)
--- NOTE | 2020-04-29 02:00 | NUR ---
BP Patient with elevated bp of 165/79. Patient with no s/s of headache or dizziness. Patient medicated per PRN MD ORDER Call device within reach will cont. to monitor.
[2020-04-29 05:37] LABS: BASOPHILS % (AUTO) 0.1 % (0.0-5.0); EOSINOPHILS % (AUTO) 0.1 % (0.0-8.0); LYMPHOCYTES % (AUTO) 9.6 % (21.0-51.0); MEAN CORPUSCULAR HEMOGLOBIN 29.9 pg (27.0-33.0); MEAN CORPUSCULAR HGB CONC 34.2 g/dL (32.0-36.0); MEAN CORPUSCULAR VOLUME 87.4 fL (79-99); MONOCYTES % (AUTO) 5.5 % (3.0-13.0); NEUTROPHILS % (AUTO) 84.3 % (40.0-77.0); PLATELET COUNT (AUTO) 182 K/uL (130-400); RED BLOOD CELL COUNT(AUTO) 4.92 MIL/uL (4.50-6.20); RED CELL DISTRIBUTION WIDTH 13.3 % (11.0-15.5); WHITE BLOOD COUNT (AUTO) 17.2 K/uL (4.8-10.8)
[2020-04-29 05:45] LABS: HEMOGLOBIN A1C 9.3 % (4.0-6.0)
[2020-04-29 06:10] LABS: ALBUMIN 3.6 g/dL (3.5-5.0); BILIRUBIN,TOTAL 0.5 mg/dL (0.2-1.0); CREATININE 1.7 mg/dL (0.5-1.5); MAGNESIUM 2.4 mg/dL (1.80-2.40); POTASSIUM 4.4 mmol/L (3.5-5.1); TOTAL PROTEIN, SERUM 7.7 g/dL (6.0-8.3)
[2020-04-29] MEDS: INSULIN HUMULIN R 100 UNIT/ML 3ML SQ SCH ×4 (06:45→21:00)
[2020-04-29] MEDS ORDERED: INSULIN HUMULIN R 100 UNIT/ML 3ML SQ SCH (07:30)
[2020-04-29] MEDS: INSULIN GLARGINE 100 UNITS/ML 10 ML VIAL SQ SCH ×2 (07:58→21:00)
[2020-04-29] MEDS: APIXABAN 5 MG TABLET PO SCH ×2 (08:19→21:00)
[2020-04-29] MEDS: DOXYCYCLINE HYCLATE 100 MG TABLET PO SCH ×2 (08:19→21:00)
[2020-04-29] MEDS: LOSARTAN/HYDROCHLOROTHIAZIDE 50-12.5MG TABLET PO SCH (08:20)
[2020-04-29] MEDS: ASPIRIN 81MG TAB.CHEW PO SCH (08:20)
[2020-04-29] MEDS: FAMOTIDINE/PF 20 MG/2 ML VIAL IV SCH ×2 (08:20→21:00)
[2020-04-29] MEDS: METOPROLOL TARTRATE 50 MG TAB PO SCH ×2 (08:20→21:00)
[2020-04-29] MEDS: FUROSEMIDE 40 MG TABLET PO SCH (08:21)
[2020-04-29] MEDS: CETIRIZINE HCL 5 MG TABLET PO SCH (08:21)
[2020-04-29] MEDS: MONTELUKAST SODIUM 10 MG TAB PO SCH (08:21)
[2020-04-29] MEDS: ATORVASTATIN CALCIUM 40 MG TABLET PO SCH (08:21)
[2020-04-29] MEDS: HEPARIN SODIUM 5000UNIT/ML 1ML VIAL SQ SCH ×3 (08:28→21:00)
[2020-04-29] MEDS: DULERA IH SCH ×2 (08:31→21:00)
[2020-04-29] MEDS: FLUTIC IH SCH ×2 (08:31→21:00)
[2020-04-29] MEDS: GLYBURIDE 5 MG TABLET PO SCH ×2 (08:51→17:00)
[2020-04-29] MEDS ORDERED: VALSARTAN 320 MG PO SCH (09:00)
[2020-04-29 12:08] LABS: APPEARANCE,URINE Clear (CLEAR); BILIRUBIN,URINE Negative (NEGATIVE); COLOR,URINE Yellow (YELLOW); GLUCOSE, URINE (UA) TRACE mg/dL (NEGATIVE); KETONES,URINE Negative (NEGATIVE); LEUKOCYTE ESTERASE ,URINE Negative (NEGATIVE); NITRATE,URINE Negative (NEGATIVE); OCCULT BLOOD,URINE Negative (NEGATIVE); PROTEIN,URINE Trace mg/dL (NEGATIVE); UROBILINOGEN,URINE 0.2 mg/dL (0.2-1.0)
[2020-04-29 12:28] LABS: HYALINE CASTS, URINE 26-50 /LPF (0-1 /LPF); RBC,URINE None Seen /HPF (0-1); SQUAMOUS EPITHELIAL CELL,UR Rare /HPF (0-2); WBC,URINE None Seen /HPF (0-1)
[2020-04-29 12:29] LABS: BACTERIA,URINE Few /HPF (None Seen)
[2020-04-29 14:42] LABS: THYROID STIMULATING HORMONE 0.17 uIU/mL (0.36-3.74)
--- NOTE | 2020-04-29 15:15 | NUR ---
Neuro assessment. 0800: Pt aaox4 upon assessment this morning, but noted to be exhibiting bizarre behavior. Observed laughing to self and playing with gloves in the room. Pt also observed getting up without calling for help despite redirection multiple of times. 1330: Pt getting progressively confused. Pt oriented to self only. Reports it is "May" and "I think Im in a restaurant" Reported to Dr Juanjose Gill 1350: Teleneuro consult orders obtained. 1400: Teleneuro by bedside, awaiting neurologist [id number]: Dr Derick Delgado assessing pt via monitor, Dr Sow by bedside. Pt denies alcohol/recreational drug use. Pt states "I got here today, i think i am at her house" while pointing to nurse. Pt unable to recall what he was doing yesterday. Pt moving all extremities freely. Strong and equal social worker aide. Facial symmetry equal. Per Dr Delgado, advised for thiamine and MRI with contrast. 1500: Dr Michael paged for nephro clearance for MRI contrast. Awaiting call back.
--- NOTE | 2020-04-29 16:36 | NUR ---
MRI Spoke with Dr Michael via telephone. Ok for MRI Brain with contrast as long as pt consents. Spoke with pt and Pts Katerina in regards to Risks of contrasts. Verbalizes that they will do MRI without contrast. Also requesting antianxiety medication prior to exam. Reported to Dr Sow of Update, orders received.
[2020-04-29] MEDS ORDERED: LORAZEPAM 2 MG/ML 1 ML VIAL IVP ONE (16:45)
--- NOTE | 2020-04-29 17:19 | NUR ---
MRI To be done tomorrow, per Eulalio technical support assistant
--- NOTE | 2020-04-29 17:57 | NUR ---
Dr Yip by bedside
[2020-04-29] MEDS: TAMSULOSIN HCL 0.4 MG CAP.ER.24H PO SCH (21:00)
[2020-04-30 03:55] VITALS: BP 134/60
[2020-04-30 05:31] LABS: BASOPHILS % (AUTO) 0.1 % (0.0-5.0); EOSINOPHILS % (AUTO) 0.8 % (0.0-8.0); HEMATOCRIT 43.1 % (42-54); LYMPHOCYTES % (AUTO) 20.8 % (21.0-51.0); MEAN CORPUSCULAR HEMOGLOBIN 29.8 pg (27.0-33.0); MEAN CORPUSCULAR HGB CONC 32.5 g/dL (32.0-36.0); MEAN CORPUSCULAR VOLUME 91.7 fL (79-99); MONOCYTES % (AUTO) 9.3 % (3.0-13.0); NEUTROPHILS % (AUTO) 68.6 % (40.0-77.0); PLATELET COUNT (AUTO) 147 K/uL (130-400); RED CELL DISTRIBUTION WIDTH 13.6 % (11.0-15.5); WHITE BLOOD COUNT (AUTO) 11.3 K/uL (4.8-10.8)
[2020-04-30 05:49] LABS: ALBUMIN 3.3 g/dL (3.5-5.0); BILIRUBIN,TOTAL 0.5 mg/dL (0.2-1.0); CREATININE 1.9 mg/dL (0.5-1.5); MAGNESIUM 2.5 mg/dL (1.80-2.40); PHOSPHORUS 5.9 mg/dL (2.5-4.9); POTASSIUM 4.1 mmol/L (3.5-5.1); TOTAL PROTEIN, SERUM 6.6 g/dL (6.0-8.3)
[2020-04-30] MEDS ORDERED: LORAZEPAM 2 MG/ML 1 ML VIAL IVP SCH (06:00)
[2020-04-30] MEDS: IPRATROPIUM/ALBUTEROL SULFATE 3 ML SOLUTION IH SCH ×4 (06:22→23:13)
[2020-04-30] MEDS: INSULIN HUMULIN R 100 UNIT/ML 3ML SQ SCH ×4 (06:55→21:00)
[2020-04-30 08:00] VITALS: BP 117/49
[2020-04-30] MEDS: INSULIN GLARGINE 100 UNITS/ML 10 ML VIAL SQ SCH ×2 (08:05→22:46)
[2020-04-30] MEDS ORDERED: THIAMINE HCL 100 MG/ML 2ML VIAL IVP SCH (08:45)
[2020-04-30] MEDS: FLUTIC IH SCH ×2 (09:00→21:00)
[2020-04-30] MEDS: DULERA IH SCH ×2 (09:00→21:00)
[2020-04-30] MEDS: CETIRIZINE HCL 5 MG TABLET PO SCH (09:05)
[2020-04-30] MEDS: METOPROLOL TARTRATE 50 MG TAB PO SCH ×2 (09:06→22:43)
[2020-04-30] MEDS: LOSARTAN/HYDROCHLOROTHIAZIDE 50-12.5MG TABLET PO SCH (09:06)
[2020-04-30] MEDS: APIXABAN 5 MG TABLET PO SCH ×2 (09:06→22:43)
[2020-04-30] MEDS: ATORVASTATIN CALCIUM 40 MG TABLET PO SCH (09:07)
[2020-04-30] MEDS: FUROSEMIDE 40 MG TABLET PO SCH (09:07)
[2020-04-30] MEDS: ASPIRIN 81MG TAB.CHEW PO SCH (09:07)
[2020-04-30] MEDS: DOXYCYCLINE HYCLATE 100 MG TABLET PO SCH ×2 (09:07→22:43)
[2020-04-30] MEDS: MONTELUKAST SODIUM 10 MG TAB PO SCH (09:07)
[2020-04-30] MEDS: FAMOTIDINE/PF 20 MG/2 ML VIAL IV SCH ×2 (09:08→22:43)
[2020-04-30] MEDS: GLYBURIDE 5 MG TABLET PO SCH ×2 (09:08→16:50)
[2020-04-30] MEDS: HEPARIN SODIUM 5000UNIT/ML 1ML VIAL SQ SCH ×3 (09:22→22:44)
[2020-04-30] MEDS: THIAMINE HCL 100 MG/ML 2ML VIAL IVP SCH ×3 (10:02→22:44)
--- NOTE | 2020-04-30 10:08 | NUR ---
Thiamine Thiamine dose verified with pharmacist Bryan and Dr Sow. Order dosage changed to 300mg q 8 hours x 2 days.
[2020-04-30 11:00] VITALS: BP 96/57
[2020-04-30 11:34] VITALS: BP 121/40
--- NOTE | 2020-04-30 11:34 | NUR ---
Pt to MRI
[2020-04-30 16:00] VITALS: BP 120/55
--- NOTE | 2020-04-30 18:58 | NUR ---
411 to 410 Transient confusion observed Reiterated multiple times to use call ortiz. Pt observed urinating on the floor times two Charge nurse Madeline made aware. Pt moved closer to nurses station for observation
[2020-04-30 20:00] VITALS: BP 119/55
--- NOTE | 2020-04-30 21:35 | NUR ---
PATIENT WITH EPISODE OF INCREASED DIFFICULTY SLEEPING AND RESTLESSNESS. PT WITH MULTIPLE ATTEMPTS TO LEAVE BED UNASSISTED WITH NOTED UNSTEADY GAIT. PT A&O X 3 WITH CONFUSION. PT MEDICATED WITH AMBIEN 10MG PO PER PRN MD ORDER. PT REORIENTED MULTIPLE TIMES OF HIS REASON AND NEED TO BE IN HOSPITAL. PATIENT EXPRESSES UNDERSTANDING BUT CONT TO EXIT SEEK. BED ALARM ON TO ALERT STAFF, BED LOWEST POSITION FOR SAFETY, CALL LIGHT WITHIN REACH WILL CONT. TO MONITOR.
[2020-04-30 22:35] LABS: APPEARANCE,URINE Clear (CLEAR); BILIRUBIN,URINE Negative (NEGATIVE); COLOR,URINE Yellow (YELLOW); GLUCOSE, URINE (UA) Negative (NEGATIVE); KETONES,URINE Negative (NEGATIVE); LEUKOCYTE ESTERASE ,URINE Negative (NEGATIVE); NITRATE,URINE Negative (NEGATIVE); OCCULT BLOOD,URINE Negative (NEGATIVE); PROTEIN,URINE Negative (NEGATIVE); UROBILINOGEN,URINE 0.2 mg/dL (0.2-1.0)
[2020-04-30] MEDS: TAMSULOSIN HCL 0.4 MG CAP.ER.24H PO SCH (22:43)
[2020-05-01] VITALS (8 sets, daily range): BP systolic 99–178; BP diastolic 54–80
--- NOTE | 2020-05-01 03:58 | NUR ---
BEHAVIOR PATIENT WITH EPISODE OF INCREASED ANXIETY AND RESTLESSNESS. PT STATES " I WANT TO LEAVE HERE NOW" MULTIPLE ATTEMPTS TO LEAVE BED UNASSISTED WITH NOTED UNSTEADY GAIT. PT A&O X 3 WITH CONFUSION. PT REORIENTED MULTIPLE TIMES OF HIS REASON AND NEED TO BE IN HOSPITAL. PATIENT EXPRESSES UNDERSTANDING BUT CONT TO EXIT SEEK. BED ALARM ON TO ALERT STAFF, BED LOWEST POSITION FOR SAFETY, CALL LIGHT WITHIN REACH WILL CONT. TO MONITOR. Addendum: 05/01/20 at 0406 by ANAT RODRIGUEZ RN RN Amended: Links added.
[2020-05-01 04:19] LABS: BASOPHILS % (AUTO) 0.1 % (0.0-5.0); EOSINOPHILS % (AUTO) 2.4 % (0.0-8.0); HEMATOCRIT 44.7 % (42-54); LYMPHOCYTES % (AUTO) 28.7 % (21.0-51.0); MEAN CORPUSCULAR HEMOGLOBIN 29.3 pg (27.0-33.0); MEAN CORPUSCULAR HGB CONC 32.9 g/dL (32.0-36.0); MONOCYTES % (AUTO) 10.4 % (3.0-13.0); NEUTROPHILS % (AUTO) 57.9 % (40.0-77.0); PLATELET COUNT (AUTO) 215 K/uL (130-400); RED BLOOD CELL COUNT(AUTO) 5.02 MIL/uL (4.50-6.20); RED CELL DISTRIBUTION WIDTH 13.4 % (11.0-15.5); WHITE BLOOD COUNT (AUTO) 14.1 K/uL (4.8-10.8)
[2020-05-01 04:36] LABS: ALBUMIN 3.4 g/dL (3.5-5.0); BILIRUBIN,TOTAL 0.8 mg/dL (0.2-1.0); CREATININE 1.9 mg/dL (0.5-1.5); MAGNESIUM 2.1 mg/dL (1.80-2.40); PHOSPHORUS 4.4 mg/dL (2.5-4.9); POTASSIUM 3.2 mmol/L (3.5-5.1); TOTAL PROTEIN, SERUM 7.4 g/dL (6.0-8.3)
[2020-05-01] MEDS: IPRATROPIUM/ALBUTEROL SULFATE 3 ML SOLUTION IH SCH ×3 (06:00→18:34)
[2020-05-01] MEDS: INSULIN HUMULIN R 100 UNIT/ML 3ML SQ SCH ×4 (06:09→21:00)
[2020-05-01] MEDS: THIAMINE HCL 100 MG/ML 2ML VIAL IVP SCH ×3 (06:40→22:41)
[2020-05-01] MEDS: INSULIN GLARGINE 100 UNITS/ML 10 ML VIAL SQ SCH ×2 (07:30→21:00)
[2020-05-01] MEDS ORDERED: POTASSIUM CHLORIDE 20MEQ/100ML 100 ML IV ONE (09:11)
[2020-05-01] MEDS: CETIRIZINE HCL 5 MG TABLET PO SCH (09:15)
[2020-05-01] MEDS: MONTELUKAST SODIUM 10 MG TAB PO SCH (09:16)
[2020-05-01] MEDS: METOPROLOL TARTRATE 50 MG TAB PO SCH ×2 (09:16→22:39)
[2020-05-01] MEDS: FLUTIC IH SCH ×2 (09:16→21:00)
[2020-05-01] MEDS: ATORVASTATIN CALCIUM 40 MG TABLET PO SCH (09:16)
[2020-05-01] MEDS: APIXABAN 5 MG TABLET PO SCH ×2 (09:16→22:38)
[2020-05-01] MEDS: FAMOTIDINE/PF 20 MG/2 ML VIAL IV SCH ×2 (09:16→22:38)
[2020-05-01] MEDS: DOXYCYCLINE HYCLATE 100 MG TABLET PO SCH ×2 (09:16→22:38)
[2020-05-01] MEDS: ASPIRIN 81MG TAB.CHEW PO SCH (09:16)
[2020-05-01] MEDS: DULERA IH SCH ×2 (09:16→21:00)
[2020-05-01] MEDS: LOSARTAN/HYDROCHLOROTHIAZIDE 50-12.5MG TABLET PO SCH (09:16)
[2020-05-01] MEDS: FUROSEMIDE 40 MG TABLET PO SCH (09:16)
[2020-05-01] MEDS: GLYBURIDE 5 MG TABLET PO SCH ×2 (09:34→16:41)
--- NOTE | 2020-05-01 10:16 | NUR ---
contact and spoke with dr. mooney, pt k 3.2, ordered place on k protocol. torb and confirmed.
--- NOTE | 2020-05-01 11:24 | NUR ---
CONTACT AND SPOKE WITH , PER PT REQUESTING USED HIS OWN CPAP. AUGUSTINE MONTANO ORDERED OK TO USED OWN CPAP.
--- NOTE | 2020-05-01 13:59 | NUR ---
MAKES HIS ROUNDS, VERBAL ORDERED BMP AND MAGNESIUM IN THE MORNING.
--- NOTE | 2020-05-01 15:02 | NUR ---
SEEN PT GETTING IN HIS BAG HYDROCODONE 5-325. INFORMED PT HIS PERSONAL MEDICATION WILL BE PLACED IN THE PHARMACY. COUNTED THE NARCOTIC MEDICATION 10 PCS. WITH FELLOW RN UZMA. GIVEN THE NORCO BOTTLE 10 PCS TO [facility] PHARMACIST.
--- NOTE | 2020-05-01 16:12 | NUR ---
PT SONIYA BROUGHT PT CPAP MACHINE, RECEIVED AT THE ER CPAP, ALSO RETURNED PT HOME MEDICATION GIVEN TO SONIYA , TORESEMIDE 1 SMALL BOTTLE, ELIQUIS 1 SMALL BOTTLE , NORCO 10 PCS KEPT FROM PHARMACY LOT # [id number], PT AND FAMILY APPRECIATIVE CARE PROVIDED.
--- NOTE | 2020-05-01 17:09 | NUR ---
SPOKE WITH PT PCP, GIVEN HER UPDATES , PT WANTS TO GO HOME. PCP WILL TALK TO HOSPITALIST IN THE MORNING FOR THE DETENTION PLAN. INFORMED PCP HE HAS A SITTER AND SEEN BY NEUROLOGIST DURING THE Day.
--- NOTE | 2020-05-01 19:47 | NUR ---
given report to oneida cortes night nurse for continuity of care.
[2020-05-01] MEDS: TAMSULOSIN HCL 0.4 MG CAP.ER.24H PO SCH (22:38)
[2020-05-02 04:38] VITALS: BP 96/59
[2020-05-02 05:24] LABS: CREATININE 2.4 mg/dL (0.5-1.5); MAGNESIUM 2.1 mg/dL (1.80-2.40); POTASSIUM 3.3 mmol/L (3.5-5.1)
[2020-05-02] MEDS: IPRATROPIUM/ALBUTEROL SULFATE 3 ML SOLUTION IH SCH ×2 (06:21→11:07)
[2020-05-02] MEDS ORDERED: POTASSIUM CHLORIDE 10% ELIXIR 20 MEQ/15 ML UDCUP PO SCH (06:30)
[2020-05-02] MEDS: THIAMINE HCL 100 MG/ML 2ML VIAL IVP SCH ×2 (06:45→13:03)
[2020-05-02] MEDS: INSULIN HUMULIN R 100 UNIT/ML 3ML SQ SCH ×2 (06:46→11:30)
[2020-05-02] MEDS: INSULIN GLARGINE 100 UNITS/ML 10 ML VIAL SQ SCH (06:46)
[2020-05-02 08:00] VITALS: BP 103/48
[2020-05-02] MEDS: FLUTIC IH SCH (09:19)
[2020-05-02] MEDS: DULERA IH SCH (09:19)
[2020-05-02] MEDS: MONTELUKAST SODIUM 10 MG TAB PO SCH (09:20)
[2020-05-02] MEDS: DOXYCYCLINE HYCLATE 100 MG TABLET PO SCH (09:20)
[2020-05-02] MEDS: LOSARTAN/HYDROCHLOROTHIAZIDE 50-12.5MG TABLET PO SCH (09:20)
[2020-05-02] MEDS: ASPIRIN 81MG TAB.CHEW PO SCH (09:20)
[2020-05-02] MEDS: APIXABAN 5 MG TABLET PO SCH (09:20)
[2020-05-02] MEDS: CETIRIZINE HCL 5 MG TABLET PO SCH (09:20)
[2020-05-02] MEDS: FAMOTIDINE/PF 20 MG/2 ML VIAL IV SCH (09:20)
[2020-05-02] MEDS: ATORVASTATIN CALCIUM 40 MG TABLET PO SCH (09:20)
[2020-05-02] MEDS: METOPROLOL TARTRATE 50 MG TAB PO SCH (09:20)
[2020-05-02] MEDS: FUROSEMIDE 40 MG TABLET PO SCH (09:20)
[2020-05-02 11:00] VITALS: BP 93/50
--- NOTE | 2020-05-02 12:04 | NUR ---
Mayco Alexander came by and spoke with pt, pt refused for continuing care and wants to go home, educated pt on outcome and advocated but pt wants to go home, Mayco Gordon signed the released ama form, pt signed witness by me. spoke with pt [place] to be picked up @ 100 pm.
--- NOTE | 2020-05-02 12:57 | NUR ---
removed pt tele leads , given box to sitter, discontinue iv, pt tolerated well, given tyelnol for pain, pre assessement done, safety maintained.
== END 2020-05-02 13:06 | disposition left against medical advice (07) | DRG 291 ==
LOC: EDH 17:30 → EDHIP 04-28 00:04 → 4BH 04-28 03:20
PROVIDERS: ADMIT Internal Medicine; ATTEND Internal Medicine
PROC: 5A09357 Assistance with Respiratory Ventilation, Less than 24 Consecutive Hours, Continuous Positive Airway Pressure (ICD-10-PCS; principal; 2020-05-01)
PROC: 5A09357 Assistance with Respiratory Ventilation, Less than 24 Consecutive Hours, Continuous Positive Airway Pressure (ICD-10-PCS; 2020-05-02)
DX: I13.0 Hypertensive heart and chronic kidney disease with heart failure and stage 1 through stage 4 chronic kidney disease, or unspecified chronic kidney disease (principal); J96.01 Acute respiratory failure with hypoxia; I50.43 Acute on chronic combined systolic (congestive) and diastolic (congestive) heart failure; G93.41 Metabolic encephalopathy; N17.9 Acute kidney failure, unspecified; J44.1 Chronic obstructive pulmonary disease with (acute) exacerbation; E66.2 Morbid (severe) obesity with alveolar hypoventilation; E87.2 Acidosis; I48.0 Paroxysmal atrial fibrillation; E78.5 Hyperlipidemia, unspecified; D64.9 Anemia, unspecified; D72.828 Other elevated white blood cell count; E11.22 Type 2 diabetes mellitus with diabetic chronic kidney disease; E11.65 Type 2 diabetes mellitus with hyperglycemia; E83.39 Other disorders of phosphorus metabolism; G14 Postpolio syndrome; G70.9 Myoneural disorder, unspecified; I27.20 Pulmonary hypertension, unspecified; N18.9 Chronic kidney disease, unspecified; Z20.828 Contact with and (suspected) exposure to other viral communicable diseases; Z68.33 Body mass index [BMI] 33.0-33.9, adult; Z90.49 Acquired absence of other specified parts of digestive tract; Z79.899 Other long term (current) drug therapy; Z85.820 Personal history of malignant melanoma of skin; Z79.01 Long term (current) use of anticoagulants; I25.2 Old myocardial infarction; Z82.49 Family history of ischemic heart disease and other diseases of the circulatory system
CPT/HCPCS: 36415; 36600; 70450; 70551; 71045; 71275; 76770; 80048; 80053; 81001; 81003; 82550; 82607; 82746; 82803; 82948; 83036; 83735; 83874; 83880; 84100; 84132; 84443; 84484; 85025; 85610; 85730; 86701; 87390; 87426; 93005; 93306; 93356; 94640; 94660; 94664; G0378; J0360; J1644; J1815; J1940; J2060; J2920; J2930; J3411; J3480; J3490; Q9967; U0003

== ENCOUNTER 2021-06-16 17:39 | Inpatient (IN) | payer MEDICARE, OTHER ==
[~2021-06-16] VITALS: Ht 172.7 cm; Wt 113.6 kg
[~2021-06-16 17:39] MED LIST changes: -BENZ-51 PO; +BENZ-70 PO; +MONT-39 PO; -MONT10TA26 PO
[2021-06-16] MEDS ORDERED: 0.9%NACL 1000ML 1,000 ML IV ONE (18:00)
[2021-06-16 18:07] LABS: BASOPHILS % (AUTO) 0.1 % (0.0-5.0); EOSINOPHILS % (AUTO) 0.3 % (0.0-8.0); HEMATOCRIT 32.3 % (42-54); LYMPHOCYTES % (AUTO) 3.9 % (21.0-51.0); MEAN CORPUSCULAR HEMOGLOBIN 29.4 pg (27.0-33.0); MEAN CORPUSCULAR HGB CONC 32.5 g/dL (32.0-36.0); MEAN CORPUSCULAR VOLUME 90.5 fL (79-99); MONOCYTES % (AUTO) 6.3 % (3.0-13.0); NEUTROPHILS % (AUTO) 88.8 % (40.0-77.0); PLATELET COUNT (AUTO) 230 K/uL (130-400); RED BLOOD CELL COUNT(AUTO) 3.57 MIL/uL (4.50-6.20); WHITE BLOOD COUNT (AUTO) 19.5 K/uL (4.8-10.8)
[2021-06-16 18:39] LABS: CREATININE 1.9 mg/dL (0.5-1.5); POTASSIUM 4.9 mmol/L (3.5-5.1)
[2021-06-16 18:41] LABS: B-TYPE NATRIURETIC PEPTIDE 382 pg/mL (0-100)
[2021-06-16 18:45] LABS: ALBUMIN 3.1 g/dL (3.5-5.0); BILIRUBIN,TOTAL 0.7 mg/dL (0.2-1.0); TOTAL PROTEIN, SERUM 7.2 g/dL (6.0-8.3)
[2021-06-16 18:57] LABS: APPEARANCE,URINE CLOUDY (CLEAR); BILIRUBIN,URINE NEGATIVE (NEGATIVE); COLOR,URINE YELLOW (YELLOW); GLUCOSE, URINE (UA) NEGATIVE (NEGATIVE); KETONES,URINE NEGATIVE (NEGATIVE); LEUKOCYTE ESTERASE ,URINE LARGE (NEGATIVE); NITRATE,URINE NEGATIVE (NEGATIVE); OCCULT BLOOD,URINE MODERATE (NEGATIVE); PH,URINE 5.5 (5.0-8.0); PROTEIN,URINE TRACE mg/dL (NEGATIVE); UROBILINOGEN,URINE 0.2 mg/dL (0.2-1.0)
[2021-06-16 19:29] LABS: BACTERIA,URINE Moderate /HPF (None Seen); WBC,URINE 26-50 /HPF (0-1)
[2021-06-16 19:30] LABS: HYALINE CASTS, URINE 0-1 /LPF (0-1 /LPF); SQUAMOUS EPITHELIAL CELL,UR Rare /HPF (0-2)
[2021-06-16] MEDS ORDERED: ONDANSETRON 4MG INJ IV PRN (19:30)
[2021-06-16] MEDS ORDERED: LACTATED RINGERS 1000ML 2,052 ML IV ONE (19:30)
[2021-06-16] MEDS ORDERED: GABA300S PO (19:53)
[2021-06-16] MEDS ORDERED: TORS20TA4 PO (19:53)
[2021-06-16] MEDS ORDERED: FEXO180T94 PO (19:53)
[2021-06-16] MEDS ORDERED: CELE200 PO (19:53)
[2021-06-16] MEDS ORDERED: FLUT1DIS5 IH (19:53)
[2021-06-16] MEDS: ZOSYN 3.375GM+NS 50ML 50 ML IV SCH (19:54)
[2021-06-16] MEDS ORDERED: ZOSYN 3.375GM +NS 50ML IV SCH (20:00)
[2021-06-16 20:03] LABS: INR 1.32 (0.85-1.15)
[2021-06-16 20:04] LABS: PARTIAL THROMBOPLASTIN TIME 29.3 SEC (26.3-35.5)
[2021-06-16] MEDS ORDERED: DILTIAZEM 25MG INJ IVP PRN (20:30)
[2021-06-16] MEDS ORDERED: DILTIAZEM 125 MG/25 ML INJ 125 MG in 0.9%NACL 100ML 100 ML IV PRN (20:30)
[2021-06-16] MEDS ORDERED: NON-FORMULARY MEDICATION 1 EACH (Metoprolol Tartrate 100 MG) PO SCH (21:00)
[2021-06-16] MEDS ORDERED: APIXABAN 5 MG TABLET PO SCH (21:00)
[2021-06-16] MEDS: FLUTICASONE IH SCH (21:00)
[2021-06-16] MEDS: METOPROLOL TARTRATE 50 MG TAB PO SCH (21:00)
[2021-06-16] MEDS: SALMETEROL IH SCH (21:00)
[2021-06-16] MEDS ORDERED: ALBUTEROL SULFATE 90 MCG IH PRN (21:00)
[2021-06-16] MEDS: GABAPENTIN 300 MG CAPSULE PO SCH (21:44)
[2021-06-16] MEDS: TAMSULOSIN HCL 0.4 MG CAP.ER.24H PO SCH (21:44)
[2021-06-16] MEDS ORDERED: APIXABAN 2.5 MG TABLET PO ONE (21:50)
[2021-06-17] VITALS: BP 113/57
[2021-06-17] MEDS ORDERED: STOOL SOFTNER PO (00:28)
[2021-06-17] MEDS ORDERED: MONT-39 PO (00:28)
[2021-06-17] MEDS ORDERED: POTA-79 PO (00:28)
[2021-06-17] MEDS ORDERED: BENEFIBER PO (00:28)
[2021-06-17] MEDS ORDERED: ZOLP10TA2 PO (00:29)
[2021-06-17 05:04] LABS: BASOPHILS % (AUTO) 0.1 % (0.0-5.0); EOSINOPHILS % (AUTO) 0.1 % (0.0-8.0); HEMATOCRIT 30.3 % (42-54); LYMPHOCYTES % (AUTO) 11.6 % (21.0-51.0); MEAN CORPUSCULAR HEMOGLOBIN 29.3 pg (27.0-33.0); MEAN CORPUSCULAR HGB CONC 31.4 g/dL (32.0-36.0); MEAN CORPUSCULAR VOLUME 93.5 fL (79-99); MONOCYTES % (AUTO) 7.1 % (3.0-13.0); NEUTROPHILS % (AUTO) 80.7 % (40.0-77.0); PLATELET COUNT (AUTO) 186 K/uL (130-400); RED BLOOD CELL COUNT(AUTO) 3.24 MIL/uL (4.50-6.20); RED CELL DISTRIBUTION WIDTH 14.3 % (11.0-15.5); WHITE BLOOD COUNT (AUTO) 13.7 K/uL (4.8-10.8)
[2021-06-17 05:32] LABS: CREATININE 1.8 mg/dL (0.5-1.5); MAGNESIUM 2.1 mg/dL (1.80-2.40); PHOSPHORUS 4.6 mg/dL (2.5-4.9); POTASSIUM 4.7 mmol/L (3.5-5.1); THYROID STIMULATING HORMONE 0.2 uIU/mL (0.36-3.74)
[2021-06-17] MEDS: ZOSYN 3.375GM+NS 50ML 50 ML IV SCH ×2 (06:08→21:16)
[2021-06-17 06:20] VITALS: BP 116/56
[2021-06-17 07:22] LABS: INR 1.34 (0.85-1.15); PROTHROMBIN TIME 14.2 SEC (9.6-11.6)
[2021-06-17 07:23] LABS: PARTIAL THROMBOPLASTIN TIME 31.3 SEC (26.3-35.5)
[2021-06-17] MEDS ORDERED: HEPARIN 5,000 UNIT VIAL ONE (07:43)
[2021-06-17 08:00] VITALS: BP 160/79
[2021-06-17] MEDS: HEPARIN 25,000 UNITS/250ML D5W 250 ML IV SCH ×2 (08:05→23:44)
[2021-06-17] MEDS: FLUTICASONE IH SCH ×2 (09:00→21:21)
[2021-06-17] MEDS ORDERED: NON-FORMULARY MEDICATION 1 EACH (Rosuvastatin Calcium (Crestor) 20 MG) PO SCH (09:00)
[2021-06-17] MEDS: SALMETEROL IH SCH ×2 (09:00→21:21)
[2021-06-17] MEDS: TORSEMIDE 20 MG TAB PO SCH (09:39)
[2021-06-17] MEDS: METOPROLOL TARTRATE 50 MG TAB PO SCH ×2 (09:40→21:16)
[2021-06-17] MEDS: GABAPENTIN 300 MG CAPSULE PO SCH ×2 (09:40→21:17)
[2021-06-17] MEDS: FAMOTIDINE 20MG TAB PO SCH (09:40)
[2021-06-17] MEDS: ATORVASTATIN 40 MG TABLET PO SCH (09:40)
[2021-06-17 12:00] VITALS: BP 122/55
[2021-06-17 14:13] LABS: INR 1.43 (0.85-1.15); PROTHROMBIN TIME 15.1 SEC (9.6-11.6)
[2021-06-17 14:43] LABS: PARTIAL THROMBOPLASTIN TIME > 139.0 SEC (26.3-35.5)
[2021-06-17 16:00] VITALS: BP 139/65
[2021-06-17] MEDS ORDERED: PHARMACY COMMUNICATION MISC SCH (17:00)
[2021-06-17] MEDS ORDERED: GLUCAGON 1MG KIT 1 MG ML IM PRN (17:00)
[2021-06-17] MEDS ORDERED: DEXTROSE 50%-WATER 50 ML DISP.SYRIN IV PRN (17:00)
[2021-06-17 20:19] VITALS: BP 158/77
[2021-06-17] MEDS: TAMSULOSIN HCL 0.4 MG CAP.ER.24H PO SCH (21:16)
[2021-06-17] MEDS: INSULIN R PO SS1 SQ SCH (21:20)
[2021-06-18] VITALS (7 sets, daily range): BP systolic 114–163; BP diastolic 57–92
[2021-06-18] MEDS ORDERED: ACETAMINOPHEN 325 MG TAB ONE (04:17)
[2021-06-18] MEDS: ACETAMINOPHEN 325 MG TAB PO PRN ×3 (04:30→06:18)
[2021-06-18] MEDS ORDERED: IPRATROPIUM/ALBUTEROL SULFATE 3 ML SOLUTION IH ONE (04:30)
[2021-06-18] MEDS ORDERED: GUAIFENESIN-CODEINE 5 ML SYRUP PO ONE ×2 (04:30→23:00)
[2021-06-18 05:40] LABS: BASOPHILS % (AUTO) 0.1 % (0.0-5.0); EOSINOPHILS % (AUTO) 0.5 % (0.0-8.0); HEMATOCRIT 29.4 % (42-54); LYMPHOCYTES % (AUTO) 9.9 % (21.0-51.0); MEAN CORPUSCULAR HEMOGLOBIN 29.7 pg (27.0-33.0); MEAN CORPUSCULAR VOLUME 92.7 fL (79-99); MONOCYTES % (AUTO) 8.6 % (3.0-13.0); NEUTROPHILS % (AUTO) 80.4 % (40.0-77.0); PLATELET COUNT (AUTO) 191 K/uL (130-400); RED BLOOD CELL COUNT(AUTO) 3.17 MIL/uL (4.50-6.20); RED CELL DISTRIBUTION WIDTH 14.1 % (11.0-15.5); WHITE BLOOD COUNT (AUTO) 13.9 K/uL (4.8-10.8)
[2021-06-18 05:51] LABS: INR 1.41 (0.85-1.15); PROTHROMBIN TIME 14.9 SEC (9.6-11.6)
[2021-06-18 05:59] LABS: CREATININE 1.7 mg/dL (0.5-1.5)
[2021-06-18 06:10] LABS: PARTIAL THROMBOPLASTIN TIME 109.8 SEC (26.3-35.5)
[2021-06-18] MEDS: ZOSYN 3.375GM+NS 50ML 50 ML IV SCH (06:12)
[2021-06-18] MEDS: INSULIN R PO SS1 SQ SCH (06:14)
[2021-06-18] MEDS: ATORVASTATIN 40 MG TABLET PO SCH (08:56)
[2021-06-18] MEDS: GABAPENTIN 300 MG CAPSULE PO SCH ×2 (08:56→20:08)
[2021-06-18] MEDS: METOPROLOL TARTRATE 50 MG TAB PO SCH ×2 (08:56→20:09)
[2021-06-18] MEDS: TORSEMIDE 20 MG TAB PO SCH (08:56)
[2021-06-18] MEDS: FAMOTIDINE 20MG TAB PO SCH (08:56)
[2021-06-18] MEDS: SALMETEROL IH SCH ×2 (08:57→20:11)
[2021-06-18] MEDS: FLUTICASONE IH SCH ×2 (08:57→20:11)
[2021-06-18] MEDS ORDERED: RENAL DOSE IV SCH (10:00)
[2021-06-18] MEDS: MEROPENEM 1 GM VIAL IVP SCH ×2 (10:23→20:09)
[2021-06-18 11:02] LABS: PROTEIN,URINE RANDOM 10.2 mg/dL (0-11.9)
[2021-06-18] MEDS: INSULIN HUMULIN R 100 UNIT/ML 3ML SQ SCH ×5 (11:18→20:10)
[2021-06-18] MEDS: TAMSULOSIN HCL 0.4 MG CAP.ER.24H PO SCH (20:08)
[2021-06-18] MEDS: INSULIN GLARGINE 100 UNITS/ML 10 ML VIAL SQ SCH (20:10)
[2021-06-18] MEDS: HEPARIN 25,000 UNITS/250ML D5W 250 ML IV SCH (22:45)
[2021-06-18] MEDS ORDERED: GUAIFENESIN-CODEINE 5 ML SYRUP ONE (23:02)
[2021-06-19 02:24] LABS: BASOPHILS % (AUTO) 0.2 % (0.0-5.0); HEMATOCRIT 29.9 % (42-54); LYMPHOCYTES % (AUTO) 11.8 % (21.0-51.0); MEAN CORPUSCULAR HEMOGLOBIN 29.5 pg (27.0-33.0); MEAN CORPUSCULAR HGB CONC 31.8 g/dL (32.0-36.0); MEAN CORPUSCULAR VOLUME 92.9 fL (79-99); MONOCYTES % (AUTO) 6.8 % (3.0-13.0); NEUTROPHILS % (AUTO) 79.9 % (40.0-77.0); PLATELET COUNT (AUTO) 208 K/uL (130-400); RED BLOOD CELL COUNT(AUTO) 3.22 MIL/uL (4.50-6.20); WHITE BLOOD COUNT (AUTO) 12.8 K/uL (4.8-10.8)
[2021-06-19 02:38] LABS: INR 1.4 (0.85-1.15); PROTHROMBIN TIME 14.8 SEC (9.6-11.6)
[2021-06-19 02:39] LABS: PARTIAL THROMBOPLASTIN TIME 53.2 SEC (26.3-35.5)
[2021-06-19 03:16] LABS: CARBON DIOXIDE 37 mmol/L (21-32); CHLORIDE 95 mmol/L (101-111); CREATININE 1.4 mg/dL (0.5-1.5); GLOMERULAR FILTR. RATE CALC 52 mL/min (>60); GLUCOSE,RANDOM 180 mg/dL (70-105); POTASSIUM 3.7 mmol/L (3.5-5.1); SODIUM SERUM 138 mmol/L (136-145); THYROID STIMULATING HORMONE 0.41 uIU/mL (0.36-3.74); UREA NITROGEN, BLOOD 26 mg/dL (7-18)
[2021-06-19 03:47] LABS: % IRON SATURATION 19.3 % (30-44)
[2021-06-19 04:14] VITALS: BP 124/60
[2021-06-19] MEDS: INSULIN HUMULIN R 100 UNIT/ML 3ML SQ SCH ×7 (05:47→20:54)
[2021-06-19 07:50] VITALS: BP 137/59
[2021-06-19] MEDS: FAMOTIDINE 20MG TAB PO SCH (09:11)
[2021-06-19] MEDS: ATORVASTATIN 40 MG TABLET PO SCH (09:11)
[2021-06-19] MEDS: GABAPENTIN 300 MG CAPSULE PO SCH ×2 (09:11→20:53)
[2021-06-19] MEDS: MEROPENEM 1 GM VIAL IVP SCH (09:11)
[2021-06-19] MEDS: TORSEMIDE 20 MG TAB PO SCH (09:11)
[2021-06-19] MEDS: METOPROLOL TARTRATE 50 MG TAB PO SCH ×2 (09:12→20:53)
[2021-06-19] MEDS: FLUTICASONE IH SCH ×2 (09:17→21:06)
[2021-06-19] MEDS: SALMETEROL IH SCH ×2 (09:17→21:06)
[2021-06-19 10:42] VITALS: BP 128/58
[2021-06-19 15:49] VITALS: BP 134/68
[2021-06-19] MEDS ORDERED: LINAGLIPTIN 5 MG TABLET PO SCH (16:00)
[2021-06-19] MEDS ORDERED: EPOETIN ALFA-EPBX (NON-ESRD) 10,000 UNIT/ML VIAL SQ SCH (16:00)
[2021-06-19] MEDS ORDERED: IRON SUCROSE COMPLEX 400 MG in 0.9%NACL 50ML 50 ML IV SCH (16:00)
[2021-06-19] MEDS: CEFUROXIME AXETIL 250 MG TABLET PO SCH (16:12)
[2021-06-19 16:41] LABS: ABG BASE EXCESS 12.2 mmol/L (-2.0-3.0); ABG HCO3 37.1 mmol/L (21.0-28.0); ABG OXYGEN SATURATION 90.6 % (95.0-99.0); ABG PCO2 48 mmHg (35-48)
[2021-06-19] MEDS: LACTULOSE 20 GM/30 ML UDCUP PO SCH ×2 (17:09→20:52)
[2021-06-19 19:00] VITALS: BP 147/56
[2021-06-19] MEDS: TAMSULOSIN HCL 0.4 MG CAP.ER.24H PO SCH (20:53)
[2021-06-19] MEDS: INSULIN GLARGINE 100 UNITS/ML 10 ML VIAL SQ SCH (20:58)
[2021-06-19] MEDS: HEPARIN 25,000 UNITS/250ML D5W 250 ML IV SCH (21:18)
[2021-06-19] MEDS ORDERED: GUAIFENESIN-DM 200/20 MG 10 ML PO PRN (21:30)
[2021-06-20] VITALS: BP 130/59
[2021-06-20 02:07] LABS: BASOPHILS % (AUTO) 0.3 % (0.0-5.0); EOSINOPHILS % (AUTO) 2.2 % (0.0-8.0); HEMATOCRIT 29.5 % (42-54); LYMPHOCYTES % (AUTO) 14.2 % (21.0-51.0); MEAN CORPUSCULAR HEMOGLOBIN 29.1 pg (27.0-33.0); MEAN CORPUSCULAR HGB CONC 32.2 g/dL (32.0-36.0); MEAN CORPUSCULAR VOLUME 90.5 fL (79-99); MONOCYTES % (AUTO) 8.2 % (3.0-13.0); NEUTROPHILS % (AUTO) 74.6 % (40.0-77.0); PLATELET COUNT (AUTO) 226 K/uL (130-400); RED BLOOD CELL COUNT(AUTO) 3.26 MIL/uL (4.50-6.20); RED CELL DISTRIBUTION WIDTH 13.9 % (11.0-15.5); WHITE BLOOD COUNT (AUTO) 11.2 K/uL (4.8-10.8)
[2021-06-20 02:15] LABS: CREATININE 1.6 mg/dL (0.5-1.5); POTASSIUM 3.5 mmol/L (3.5-5.1)
[2021-06-20 02:17] LABS: INR 1.42 (0.85-1.15)
[2021-06-20 02:18] LABS: PARTIAL THROMBOPLASTIN TIME 79.7 SEC (26.3-35.5)
[2021-06-20] MEDS: HEPARIN 25,000 UNITS/250ML D5W 250 ML IV SCH ×2 (03:16→20:40)
[2021-06-20] MEDS: CEFUROXIME AXETIL 250 MG TABLET PO SCH ×2 (03:34→17:32)
[2021-06-20 04:00] VITALS: BP 146/55
[2021-06-20] MEDS: INSULIN HUMULIN R 100 UNIT/ML 3ML SQ SCH ×7 (06:37→20:31)
[2021-06-20] MEDS: LACTULOSE 20 GM/30 ML UDCUP PO SCH ×2 (07:20→20:13)
[2021-06-20 07:46] VITALS: BP 113/47
[2021-06-20 09:10] LABS: INR 1.38 (0.85-1.15); PROTHROMBIN TIME 14.6 SEC (9.6-11.6)
[2021-06-20 09:12] LABS: PARTIAL THROMBOPLASTIN TIME 54.4 SEC (26.3-35.5)
[2021-06-20] MEDS: LINAGLIPTIN 5 MG TABLET PO SCH (09:23)
[2021-06-20] MEDS: ATORVASTATIN 40 MG TABLET PO SCH (09:23)
[2021-06-20] MEDS: SALMETEROL IH SCH ×2 (09:24→20:29)
[2021-06-20] MEDS: METOPROLOL TARTRATE 50 MG TAB PO SCH ×2 (09:24→20:30)
[2021-06-20] MEDS: FLUTICASONE IH SCH ×2 (09:24→20:29)
[2021-06-20] MEDS: TORSEMIDE 20 MG TAB PO SCH (09:24)
[2021-06-20] MEDS: GABAPENTIN 300 MG CAPSULE PO SCH ×2 (09:24→20:30)
[2021-06-20] MEDS: FAMOTIDINE 20MG TAB PO SCH (09:24)
[2021-06-20 10:59] VITALS: BP 132/57
[2021-06-20 15:42] VITALS: BP 141/63
[2021-06-20 19:00] VITALS: BP 133/51
[2021-06-20] MEDS: TAMSULOSIN HCL 0.4 MG CAP.ER.24H PO SCH (20:30)
[2021-06-20] MEDS: INSULIN GLARGINE 100 UNITS/ML 10 ML VIAL SQ SCH (20:36)
[2021-06-21] VITALS: BP 104/40
[2021-06-21] MEDS: CEFUROXIME AXETIL 250 MG TABLET PO SCH (03:28)
[2021-06-21 04:00] VITALS: BP 120/45
[2021-06-21 04:06] LABS: BASOPHILS % (AUTO) 0.2 % (0.0-5.0); EOSINOPHILS % (AUTO) 2.6 % (0.0-8.0); LYMPHOCYTES % (AUTO) 15.5 % (21.0-51.0); MEAN CORPUSCULAR HEMOGLOBIN 29.5 pg (27.0-33.0); MEAN CORPUSCULAR VOLUME 92.3 fL (79-99); MONOCYTES % (AUTO) 8.7 % (3.0-13.0); NEUTROPHILS % (AUTO) 72.3 % (40.0-77.0); PLATELET COUNT (AUTO) 210 K/uL (130-400); RED BLOOD CELL COUNT(AUTO) 3.25 MIL/uL (4.50-6.20); RED CELL DISTRIBUTION WIDTH 13.8 % (11.0-15.5); WHITE BLOOD COUNT (AUTO) 10.1 K/uL (4.8-10.8)
[2021-06-21 04:13] LABS: CREATININE 1.7 mg/dL (0.5-1.5); POTASSIUM 3.4 mmol/L (3.5-5.1)
[2021-06-21] MEDS ORDERED: KCL 20 MEQ ERTAB PO ONE (05:00)
[2021-06-21] MEDS: INSULIN HUMULIN R 100 UNIT/ML 3ML SQ SCH ×4 (06:21→11:47)
[2021-06-21 07:49] VITALS: BP 126/57
[2021-06-21] MEDS: LACTULOSE 20 GM/30 ML UDCUP PO SCH (09:00)
[2021-06-21] MEDS: LINAGLIPTIN 5 MG TABLET PO SCH (09:05)
[2021-06-21] MEDS: METOPROLOL TARTRATE 50 MG TAB PO SCH (09:05)
[2021-06-21] MEDS: FAMOTIDINE 20MG TAB PO SCH (09:05)
[2021-06-21] MEDS: ATORVASTATIN 40 MG TABLET PO SCH (09:05)
[2021-06-21] MEDS: SALMETEROL IH SCH (09:06)
[2021-06-21] MEDS: GABAPENTIN 300 MG CAPSULE PO SCH (09:06)
[2021-06-21] MEDS: FLUTICASONE IH SCH (09:06)
[2021-06-21] MEDS ORDERED: 0.9%NACL 1000ML 1,000 ML IV SCH (09:30)
[2021-06-21] MEDS ORDERED: FLUCONAZOLE 200 MG/NS 100 ML 100 ML IV SCH (10:00)
[2021-06-21] MEDS ORDERED: TERBINAFINE HCL 15 GM TUBE TP SCH (10:00)
[2021-06-21 11:12] VITALS: BP 134/57
== END 2021-06-21 16:10 | DRG 871 ==
LOC: EDH 17:39 → EDHIP 19:08 → 4AH 23:53 → 4BH 06-18 04:17
PROVIDERS: ADMIT Family Medicine; ATTEND Family Medicine
PROC: 5A09357 Assistance with Respiratory Ventilation, Less than 24 Consecutive Hours, Continuous Positive Airway Pressure (ICD-10-PCS; principal; 2021-06-17)
PROC: 5A09357 Assistance with Respiratory Ventilation, Less than 24 Consecutive Hours, Continuous Positive Airway Pressure (ICD-10-PCS; 2021-06-18)
PROC: 5A09357 Assistance with Respiratory Ventilation, Less than 24 Consecutive Hours, Continuous Positive Airway Pressure (ICD-10-PCS; 2021-06-20)
DX: A41.9 Sepsis, unspecified organism (principal); I50.33 Acute on chronic diastolic (congestive) heart failure; N39.0 Urinary tract infection, site not specified; N17.9 Acute kidney failure, unspecified; I13.0 Hypertensive heart and chronic kidney disease with heart failure and stage 1 through stage 4 chronic kidney disease, or unspecified chronic kidney disease; E87.1 Hypo-osmolality and hyponatremia; E66.2 Morbid (severe) obesity with alveolar hypoventilation; I50.22 Chronic systolic (congestive) heart failure; I48.91 Unspecified atrial fibrillation; J44.9 Chronic obstructive pulmonary disease, unspecified; R31.9 Hematuria, unspecified; N18.9 Chronic kidney disease, unspecified; E11.22 Type 2 diabetes mellitus with diabetic chronic kidney disease; Z20.822 Contact with and (suspected) exposure to COVID-19; G14 Postpolio syndrome; E78.5 Hyperlipidemia, unspecified; R31.0 Gross hematuria; Z68.38 Body mass index [BMI] 38.0-38.9, adult; B96.89 Other specified bacterial agents as the cause of diseases classified elsewhere; D64.9 Anemia, unspecified; B96.20 Unspecified Escherichia coli [E. coli] as the cause of diseases classified elsewhere; K59.00 Constipation, unspecified; E78.00 Pure hypercholesterolemia, unspecified; Z79.01 Long term (current) use of anticoagulants; Z85.820 Personal history of malignant melanoma of skin; Z90.49 Acquired absence of other specified parts of digestive tract; Z90.79 Acquired absence of other genital organ(s); Z82.49 Family history of ischemic heart disease and other diseases of the circulatory system
CPT/HCPCS: 36415; 36600; 71045; 76770; 80048; 80053; 81001; 82270; 82550; 82570; 82607; 82728; 82746; 82803; 82948; 83036; 83540; 83550; 83605; 83735; 83880; 83935; 84100; 84145; 84156; 84300; 84443; 84484; 85025; 85045; 85610; 85730; 87040; 87077; 87088; 87186; 87635; 92610; 93005; 93306; 94640; 94660; 94760; 97039; 99291; C9803; G0378; J1450; J1644; J1756; J1815; J2185; J2405; J2543

== ENCOUNTER 2022-11-07 05:27 | Emergency (ER) | payer MEDICARE ==
[~2022-11-07 05:27] MED LIST changes: -ALPR0.5T8 PO; -APIX5TAB PO; -ASPI-1005 PO; +BENEFIBER PO; -BENZ-70 PO; -CETI10CA5 PO; -DULARA IH; +FEXO180T94 PO; +FLUT1DIS5 IH; -FLUTIC IH; -FURO40TA7 PO; +GABA300S PO; -GLYB5TAB8 PO; -HYDR-4377 PO; -INSU100V12 SQ; -LOSA1TAB54 PO; -OMEP10SU2 PO; -ROSU20TA23 PO; +STOOL SOFTNER PO; -VALS320T2 PO; +ZOLP10TA2 PO; -ZOLP5TAB8 PO
[2022-11-07] MEDS ORDERED: ACETAMINOPHEN 500 MG TABLET PO ONE (06:00)
[2022-11-07] MEDS ORDERED: FUROSEMIDE 40MG VIAL IV ONE (06:00)
[2022-11-07 06:21] LABS: BASOPHILS % (AUTO) 0.1 % (0.0-5.0); EOSINOPHILS % (AUTO) 2.2 % (0.0-8.0); HEMATOCRIT 34.3 % (42-54); LYMPHOCYTES % (AUTO) 13.7 % (21.0-51.0); MEAN CORPUSCULAR HGB CONC 30.3 g/dL (32.0-36.0); MEAN CORPUSCULAR VOLUME 95.5 fL (79-99); MONOCYTES % (AUTO) 8.6 % (3.0-13.0); PLATELET COUNT (AUTO) 121 K/uL (130-400); RED BLOOD CELL COUNT(AUTO) 3.59 MIL/uL (4.50-6.20); RED CELL DISTRIBUTION WIDTH 13.3 % (11.0-15.5); WHITE BLOOD COUNT (AUTO) 7.8 K/uL (4.8-10.8)
[2022-11-07 06:42] LABS: CREATININE 1.3 mg/dL (0.5-1.5); POTASSIUM 4.3 mmol/L (3.5-5.1); TOTAL PROTEIN, SERUM 6.2 g/dL (6.0-8.3)
[2022-11-07] MEDS ORDERED: FUROSEMIDE 20MG VIAL ONE (07:09)
[2022-11-07] MEDS ORDERED: IPRATROPIUM/ALBUTEROL SULFATE 3 ML SOLUTION IH ONE ×2 (08:13→08:30)
[2022-11-07 09:52] VITALS: BP 118/72
== END 2022-11-07 10:07 | disposition home or self-care (01) ==
LOC: EDH 05:27
DX: J44.9 Chronic obstructive pulmonary disease, unspecified (principal); E11.9 Type 2 diabetes mellitus without complications; E78.00 Pure hypercholesterolemia, unspecified; I11.0 Hypertensive heart disease with heart failure; I50.9 Heart failure, unspecified; I48.91 Unspecified atrial fibrillation; K21.9 Gastro-esophageal reflux disease without esophagitis; Z79.899 Other long term (current) drug therapy; Z95.1 Presence of aortocoronary bypass graft; Z98.890 Other specified postprocedural states
CPT/HCPCS: 99285; 70450; 96374; 71045; 84484; 80053; 83880; 85025; 72125; 36415; 73080; 72170; 93005; 94640; J1940